=== PATIENT | male | born 1950 | race Caucasian/White ===

== ENCOUNTER 2025-02-03 13:09 | Inpatient (IN) ==
--- NOTE | 2025-02-03 13:29 | Emergency Department Note ---
Impression & Plan Stroke-like symptoms ED Provider Note NAME: GUERLINE YATES AGE: 75 SEX: M : 1950 ARRIVES VIA: Ambulance INFORMANT: Patient, EMS ED PROVIDER(S): Rajan Neri DO CHIEF COMPLAINT: Seizure HPI: The patient is a 75-year-old male who presented to the emergency department for an evaluation of possible seizure. The patient was a prehospital notification. The patient reportedly had a seizure this morning at around 11:45 AM. When the business analytics specialist arrived the patient was still somewhat postictal. There was no reported nausea or vomiting. The patient does complain of a slight headache. The patient then had an episode of aphasia prior to arrival. This was very short-lived lasting only few seconds. The patient at this time has no complaints. He denies having any fever. He denies having any neck pain or neck stiffness. He denies having any noncompliance of medications. The patient does not have a history of seizure. ROS: See above HPI for pertinent positives & negatives. A total of 10 systems reviewed and were otherwise negative. PAST MEDICAL HISTORY: See Below PAST SURGICAL HISTORY: See Below FAMILY HISTORY: See Below SOCIAL HISTORY: See Below HOME MEDICATIONS: See Below ALLERGIES: See Below VITALS: See Below PHYSICAL EXAMINATION: GENERAL: The patient is awake and answers questions appropriately. He is somewhat slow to answer questions but overall is following commands well. EYES: The conjunctivae are clear. The pupils are round and reactive. EARS, NOSE, MOUTH AND THROAT: The nose is without any evidence of any deformity. NECK: The neck is nontender and supple. RESPIRATORY: Normal respiratory effort is noted there is no evidence of wheezing rhonchi or rales CARDIOVASCULAR: Regular rate and rhythm noted there no murmurs rubs or gallops normal S1 normal S2. GASTROINTESTINAL: The abdomen is soft. Abdomen is nontender. MUSCULOSKELETAL/EXTREMITIES: There is no evidence of gross deformity full range of motion is noted in the hips and shoulders. SKIN: There is no obvious evidence of any rash. There are no petechiae, pallor or cyanosis noted. NEUROLOGIC: The patient is awake and oriented to person place and time. Strength was symmetric but diminished. There is no facial droop. Speech was soft but understandable. MEDICAL DECISION MAKING: This the patient is a 75-year-old male who presented to the emergency department by ambulance. I did receive a prehospital notification about the patient. They were concerned he may be exhibiting strokelike symptoms. He may have had a seizure prior to arrival. This was described as generalized seizure but he also has been having staring episodes. The patient arrives at the emergency department awake and alert. He was a little slow to answer questions but ultimately appears to be at his baseline according to his daughter. I discussed the patient's laboratory and radiographic studies with him. Given his findings I discussed his condition with the on-call [facility] hospitalist. He may require further inpatient evaluation. Triage Nursing notes reviewed. Prior medical records reviewed Vital Signs: reviewed and remarkable for elevated blood pressure. Differential diagnosis: Epilepsy, infection, hypoglycemia, electrolyte abnormalities, cardiac sources, intracerebral event, trauma, toxicologic, neurologic, syncope, as well as other pathologies. ER treatment provided: See below Diagnostics interpreted by me: ECG: EKG was obtained in the emergency department. My interpretation is normal sinus rhythm at 65 bpm. Nonspecific T wave abnormalities were noted. This was compared to a tracing from November 20, 2022. No changes were noted. Prehospital EKG was reviewed. My interpretation is sinus rhythm at 68 bpm. There is no ectopy. Similar T wave abnormalities were noted. Cardiac Monitoring: An order was placed for continuous cardiac monitoring. The monitor shows a rate of 63 bpm with sinus rhythm. Laboratory studies: As stated above and show below. Imaging studies: See below. Radiographic imaging was reviewed by myself Consultation(s): I discussed this case [facility] Mad[facility]. Past Med/Surg History Problem List (Updated 02/03/25 @ 17:16 by Rajan Neri DO) Stroke-like symptoms (Acute) Rectal bleeding Encounter for pre-operative examination Non-insulin dependent diabetes mellitus Hyperlipidemia Hypertension Medical History Hyperlipidemia HTN (hypertension) CAD (coronary artery disease) Stent x ~2009 BPH (benign prostatic hyperplasia) Osteoarthritis Ulcerative colitis dx prior to 2009 ? , sx intervention occ flare ups: none recent. Diabetes mellitus, type 2 NIDDM Carotid artery stenosis not that pt daughter aware of PTSD (post-traumatic stress disorder) Sleep apnea cpap, uses sometimes. Asthma last use rescue inhaler week of September [id number]. With Pollen flare. Poor historian Surgical History History of spinal fusion lumbar History of carpal tunnel release R History of colonoscopy History of herniorrhaphy R/L inguinal History of appendectomy History of bowel resection History of tooth extraction all teeth removed History of tonsillectomy History of cataract surgery left History of heart artery stent x1 , 2010 ? History of cardiac cath sob, c/p with stress test...2010 ? with 1 stent Family History Daughter Family history of reaction to anesthesia n/v Social History Smoking Status: Unknown if ever smoked Tobacco Type: Cigarettes Cigarettes Per Day: 15 year; Second Hand Exposure: No; Do You Dip or Chew Tobacco: No; Hx Alcohol Use: No Hx Substance Use: No Preferred Language: Lao Communication Ability: Effective Communication Ability Comment: phone interview with pt and pt daughter per his request. Wrapper And Preserver Required: No Beliefs That Will Affect Care: None and Taoism Taoism Beliefs: Oriental Orthodox Current Living Situation: Alone Feels Safe at Home: Yes Assistive Devices: Cane, CPAP and Walker Allergies Allergies Allergy/AdvReac Type Severity Reaction Status Date / Time bee venom protein (honey bee) Allergy Severe Swelling Verified 12/09/23 06:27 of Lip/Tongue/Throat procaine Allergy Severe ALLERGY TO Verified 12/09/23 06:27 LOCAL ANETHETICS, RXN UNKNOWN spironolactone Allergy Unknown Unknown Verified 12/09/23 06:27 [From Aldactone] lisinopril AdvReac Unknown Gastrointestinal Verified 12/09/23 06:27 Upset Home Meds Home Medications Medication Instructions Recorded Confirmed albuterol sulfate 90 mcg/actuation 2 puffs inhalation Q6H PRN 01/21/19 02/03/25 breath activated powder inhaler Shortness Of Breath atorvastatin 80 mg tablet 40 mg PO HS 01/21/19 02/03/25 cetirizine 10 mg capsule 10 mg PO QAM 01/21/19 02/03/25 cyanocobalamin (vitamin B-12) 500 500 mcg PO QAM 01/21/19 02/03/25 mcg tablet epinephrine 0.3 mg/0.3 mL 0.3 mg IM UD PRN bee stings 01/21/19 02/03/25 injection, auto-injector losartan 100 mg tablet 100 mg PO QAM 01/21/19 02/03/25 metformin 500 mg tablet 500 mg PO BID 01/21/19 02/03/25 aspirin 81 mg tablet,delayed 81 mg PO DAILY 02/03/25 02/03/25 release cholecalciferol (vitamin D3) 25 25 mcg PO DAILY 02/03/25 02/03/25 mcg (1,000 unit) tablet (Vitamin D3) metoprolol succinate 25 mg 25 mg PO HS 02/03/25 02/03/25 tablet,extended release 24 hr pregabalin 50 mg capsule 50 mg PO BID 02/03/25 02/03/25 sennosides 8.6 mg-docusate sodium 1 tab PO DAILY 02/03/25 02/03/25 50 mg tablet thiamine HCl (vitamin B1) 100 mg 100 mg PO DAILY 02/03/25 02/03/25 tablet tiotropium bromide 2.5 2 puff inhalation DAILY 02/03/25 02/03/25 mcg/actuation mist for inhalation Previous Rx's Medication Instructions Recorded meclizine 25 mg tablet 25 mg PO TID PRN dizziness #30 tabs 11/20/22 Results & Data (ED) Vital Signs Vital Signs - 24 hr 02/03/25 13:27 02/03/25 13:27 02/03/25 13:45 Temperature 36.1 C L 36.1 C L Temperature Source Axillary Axillary Pulse Rate 62 Pulse Rate [Apical] 62 Respiratory Rate 20 20 Blood Pressure 117/51 L Blood Pressure [Right Arm] 117/51 L Blood Pressure Mean 73 Blood Pressure Mean [Right Arm] 73 Pulse Oximetry 96 96 97 Oxygen Delivery Method Room Air Room Air Room Air Sepsis Recent Fever Within 48 Hours No Sepsis New/Unexplained Change in Mental Status Yes Sepsis Action Taken by Nursing No Action Required 02/03/25 14:26 02/03/25 15:52 Temperature Temperature Source Pulse Rate 62 Pulse Rate [Apical] 63 Respiratory Rate 18 Blood Pressure Blood Pressure [Right Arm] 150/118 H Blood Pressure Mean Blood Pressure Mean [Right Arm] 128 Pulse Oximetry 98 Oxygen Delivery Method Sepsis Recent Fever Within 48 Hours Sepsis New/Unexplained Change in Mental Status Sepsis Action Taken by Group Home Medications Current Medication List: was personally reviewed by me Laboratory Data Attestation: I reviewed the patient's lab results. 02/03/25 13:18 02/03/25 13:18 Lab Results 02/03/25 02/03/25 02/03/25 Range/Units 13:18 13:32 13:41 WBC 5.25 (4.8-10.8) K/ul RBC 5.05 (4.70-6.10) M/uL Hgb 14.7 (14.0-18.0) g/dl POC Hgb 14.3 (14.0-18.0) g/dl Hct 42.5 (42.0-52.0) % POC Hct 42 (42-52) % MCV 84.2 (80.0-100.0) fL MCH 29.1 (25.0-34.0) pg MCHC 34.6 (32.0-36.0) g/dL RDW Std Deviation 37.1 (36.4-46.3) fL RDW Coeff of Gelacio 12.4 (11.5-14.5) % Plt Count 192 (130-400) K/uL MPV 10.1 (9.4-12.4) fL Immature Gran % (Auto) 0.4 % Neut % (Auto) 64.9 % Lymph % (Auto) 20.8 % Solano % (Auto) 13.3 % Eos % (Auto) 0.2 % Baso % (Auto) 0.4 % Neut # (Auto) 3.41 (1.40-6.50) K/uL Lymph # (Auto) 1.09 L (1.20-3.40) K/uL Solano # (Auto) 0.70 H (0.11-0.59) K/uL Eos # (Auto) 0.01 (0.00-0.50) K/uL Baso # (Auto) 0.02 (0.00-0.20) K/uL Immature Gran # (Auto) 0.02 (0.01-0.20) K/uL PT 11.1 (9.0-12.0) Seconds INR 1.1 (0.9-1.1) APTT 20 L (21-31) Seconds PTT Ratio 0.7 VBG pH 7.32 L (7.36-7.41) VBG pCO2 52 H (38-50) mmHg VBG pO2 20 mmHg VBG HCO3 27 mmol/L VBG O2 Saturation < 60.0 % VBG Base Excess -0.1 mEq/L POC Sodium 140 (135-144) mmol/L Sodium 139 (136-145) mmol/L POC Potassium 3.5 (3.3-5.0) mmol/L Potassium 3.6 (3.5-5.1) mmol/L POC Chloride 102 (101-112) mmol/L Chloride 103 (98-107) mmol/L Carbon Dioxide 28 (21-32) mmol/L POC Total CO2 26 (24-31) mmol/L Anion Gap 8 (3-11) POC Anion Gap 17.0 (16-25) mmol/L POC BUN 30 H (7-18) mg/dl BUN 29 H (6-23) mg/dl Creatinine 1.75 H (0.6-1.4) mg/dl POC Creatinine 2.1 H (0.6-1.3) mg/dl Est Cr Clr Drug Dosing 46.8 ml/min eGFR 39.85 BUN/Creatinine Ratio 16.6 (10-20) Glucose 137 H (70-99(Fasting)) mg/dl POC Glucose 117 H (70-99) mg/dl POC Glucose (other) 134 H (70-99) mg/dl Lactate 1.9 (0.4-2.0) mmol/L Calcium 8.8 (8.6-10.3) mg/dl POC Ioniz Calcium Richie 1.07 L (1.12-1.32) mmol/l Magnesium 1.9 (1.7-2.4) mg/dl Total Bilirubin 1.2 H (0.2-1.0) mg/dl AST 27 (13-39) U/L ALT 19 (7-52) U/L Alkaline Phosphatase 74 (34-104) U/L Ammonia 23.0 (18-72) umol/L Troponin I High Sens 17.8 (0-20) pg/ml Total Protein 6.9 (6.0-8.3) gm/dl Albumin 3.9 (3.4-5.0) gm/dl Globulin 3.0 (2.5-4.0) gm/dl Albumin/Globulin Ratio 1.3 (0.9-2) Ethyl Alcohol mg/dL (<10.0) mg/dl 02/03/25 Range/Units 14:26 WBC (4.8-10.8) K/ul RBC (4.70-6.10) M/uL Hgb (14.0-18.0) g/dl POC Hgb (14.0-18.0) g/dl Hct (42.0-52.0) % POC Hct (42-52) % MCV (80.0-100.0) fL MCH (25.0-34.0) pg MCHC (32.0-36.0) g/dL RDW Std Deviation (36.4-46.3) fL RDW Coeff of Gelacio (11.5-14.5) % Plt Count (130-400) K/uL MPV (9.4-12.4) fL Immature Gran % (Auto) % Neut % (Auto) % Lymph % (Auto) % Solano % (Auto) % Eos % (Auto) % Baso % (Auto) % Neut # (Auto) (1.40-6.50) K/uL Lymph # (Auto) (1.20-3.40) K/uL Solano # (Auto) (0.11-0.59) K/uL Eos # (Auto) (0.00-0.50) K/uL Baso # (Auto) (0.00-0.20) K/uL Immature Gran # (Auto) (0.01-0.20) K/uL PT (9.0-12.0) Seconds INR (0.9-1.1) APTT (21-31) Seconds PTT Ratio VBG pH (7.36-7.41) VBG pCO2 (38-50) mmHg VBG pO2 mmHg VBG HCO3 mmol/L VBG O2 Saturation % VBG Base Excess mEq/L POC Sodium (135-144) mmol/L Sodium (136-145) mmol/L POC Potassium (3.3-5.0) mmol/L Potassium (3.5-5.1) mmol/L POC Chloride (101-112) mmol/L Chloride (98-107) mmol/L Carbon Dioxide (21-32) mmol/L POC Total CO2 (24-31) mmol/L Anion Gap (3-11) POC Anion Gap (16-25) mmol/L POC BUN (7-18) mg/dl BUN (6-23) mg/dl Creatinine (0.6-1.4) mg/dl POC Creatinine (0.6-1.3) mg/dl Est Cr Clr Drug Dosing ml/min eGFR BUN/Creatinine Ratio (10-20) Glucose (70-99(Fasting)) mg/dl POC Glucose (70-99) mg/dl POC Glucose (other) (70-99) mg/dl Lactate (0.4-2.0) mmol/L Calcium (8.6-10.3) mg/dl POC Ioniz Calcium Richie (1.12-1.32) mmol/l Magnesium (1.7-2.4) mg/dl Total Bilirubin (0.2-1.0) mg/dl AST (13-39) U/L ALT (7-52) U/L Alkaline Phosphatase (34-104) U/L Ammonia (18-72) umol/L Troponin I High Sens (0-20) pg/ml Total Protein (6.0-8.3) gm/dl Albumin (3.4-5.0) gm/dl Globulin (2.5-4.0) gm/dl Albumin/Globulin Ratio (0.9-2) Ethyl Alcohol mg/dL < 10.0 (<10.0) mg/dl Administered Medications Discontinued Medications Sodium Chloride (Nss) 1,000 mls @ 999 mls/hr IV .Q1H1M ONE Stop: 02/03/25 14:49 Last Admin: 02/03/25 14:43 Dose: 999 mls/hr Documented By: CC Ioversol (Optiray 320 125ml) 119 ml IV ONCE ONE Stop: 02/03/25 14:05 Last Admin: 02/03/25 14:05 Dose: 119 ml Documented By: PLW Imaging Data Attestation: I personally reviewed and interpreted this imaging study as follows: My Impression: 1 view chest x-ray was obtained in the emergency department. My interpretation is no free air or definite filtrate, final report below. Radiologist's Impression: Chest X-Ray 02/03/25 13:23 XR chest 1V portable CLINICAL HISTORY: neuro deficit, acute stroke suspected COMPARISON STUDY: 11/20/2022 FINDINGS: Heart size and pulmonary vasculature are normal. No consolidation or pleural effusion. No pneumothorax. IMPRESSION: No acute findings. ACT 112: Negative or not required by law. Electronically signed by: Dallas Regalado M.D. 02/03/2025 1:[address] 02/03/25 13:23 CT SCAN OF THE BRAIN WITHOUT IV CONTRAST CLINICAL HISTORY: Seizure activity. COMPARISON STUDY: Head CT November 27, 2024. TECHNIQUE: Unenhanced axial CT scan of the brain was performed from the vertex to the skull base. A dose lowering technique was utilized adhering to the principles of ALARA. FINDINGS: No acute intracranial hemorrhage, midline shift or mass effect is present. Ventricular system is stable. Basal cisterns are patent. There are no extra axial collections. White matter hypodensities are unchanged and suggest small vessel disease. There are no findings to suggest acute dural sinus thrombosis or acute territorial infarct. IMPRESSION: No acute intracranial findings. No change in appearance of the brain. ACT 112: Negative or not required by law. Electronically signed by: Butch Silvestre M.D. 02/03/2025 2:47 PM Head CTA 02/03/25 13:23 CT ANGIOGRAM OF THE BRAIN CLINICAL HISTORY: Neurological deficit. Stroke like symptoms. COMPARISON STUDY: Unenhanced CT of the brain performed concurrently on 02/03/2025. TECHNIQUE: Following the IV administration of 119 cc of Optiray 320, CT angiogram of the brain was performed from the skull base to the vertex. Images are reviewed in the axial, sagittal, and coronal planes. 3-D MIPS images are created and assessed. IV contrast was administered without complication. A dose lowering technique was utilized adhering to the principles of ALARA. CT DOSE: 1206.78 mGy.cm FINDINGS: Brain parenchyma: There is age-related involutional change noting moderate subcortical and periventricular microangiopathic disease. There is no evidence of hemorrhage or mass effect noting angiographic phase technique. There is no evidence of enhancing mass lesion on the angiogram phase images. Mineralization is noted in the basal ganglia. No extra-axial fluid collection is seen. Zambrano- white matter differentiation is preserved. Ventricles, sulci, and cisterns: Prominent secondary to involutional change. CT angiogram of the brain: There is atherosclerotic calcification of the cavernous carotid arteries. The internal carotid arteries at the skull base are patent, as are the anterior and middle cerebral arteries. The vertebrobasilar system and posterior cerebral arteries are patent. The left vertebral artery is dominant. There is a right posterior communicating artery. There is no aneurysm, high-grade stenosis, or focal vessel cutoff identified throughout the intracranial circulation. Dural sinuses: Clear as visualized. Orbits: The bony orbits are intact. The orbital contents are normal as visualized noting bilateral ocular lens implants. Sinuses and mastoids: There is trace mucosal thickening in the right maxillary antrum and right frontal sinus. The remaining paranasal sinuses are clear. The mastoid air cells are well pneumatized. Soft tissues: A surgical clip persistent metallic foreign body is seen adjacent to the right parotid gland. Calvarium: Unremarkable. IMPRESSION: 1. There is no evidence of hemorrhage or mass effect noting angiographic phase technique. 2. Unremarkable CT angiogram of the brain. ACT 112: Negative or not required by law. Electronically signed by: Raghu Valle M.D. 02/03/2025 2:27 PM Neck CTA 02/03/25 13:23 CT angio neck with con CLINICAL HISTORY: neuro deficit, acute stroke suspected. TECHNIQUE: Following the IV administration of 120 of Optiray, CT angiogram of the neck was performed from the aortic arch to the skull base. Images are reviewed in the axial, sagittal, and coronal planes. 3-D MIPS images are created and assessed. IV contrast was administered without complication. All measurements were calculated based on NASCET criteria. A dose lowering technique was utilized adhering to the principles of ALARA. CT DOSE: 1206 COMPARISON STUDY: None FINDINGS: There are mild to moderate calcifications at the carotid bulbs and distally at the internal carotid arteries bilaterally. No significant narrowing or occlusion seen at the common or internal carotid arteries bilaterally. Left vertebral artery is dominant and the right vertebral artery is diminutive. No significant narrowing or occlusion seen in the vertebral arteries bilaterally. IMPRESSION: No significant arterial narrowing or occlusion seen in the neck. ACT 112: Negative or not required by law. The above report was generated using voice recognition software. It may contain grammatical, syntax or spelling errors. Electronically signed by: Dallas Regalado M.D. 02/03/2025 2:33 PM Discharge Plan Visit Data Chief Complaint: Seizure Stated Complaint: SEIZURE ED Provider: Rajan Neri Discharge Problem: Stroke-like symptoms Patient Disposition: Home - Self-Care Condition: Fair Forms Stand Alone Forms: [facility], Important Visit Information Prescriptions Prescriptions: No Action albuterol sulfate 90 mcg/actuation aerosol powdr breath activated 2 puffs INH Q6H PRN (Reason: Shortness Of Breath) atorvastatin 80 mg tablet 40 mg PO HS cetirizine 10 mg capsule 10 mg PO QAM cyanocobalamin (vitamin B-12) 500 mcg tablet 500 mcg PO QAM epinephrine 0.3 mg/0.3 mL auto-injector 0.3 mg IM UD PRN (Reason: bee stings) losartan 100 mg tablet 100 mg PO QAM metformin 500 mg tablet 500 mg PO BID meclizine 25 mg tablet 25 mg PO TID PRN (Reason: dizziness) Qty: 30 0RF sennosides-docusate sodium 8.6-50 mg Tablet 1 tab PO DAILY thiamine HCl (vitamin B1) 100 mg Tablet 100 mg PO DAILY aspirin 81 mg Tablet,Delayed Release (Dr/Ec) 81 mg PO DAILY metoprolol succinate 25 mg Tablet Extended Release 24 Hr 25 mg PO HS pregabalin 50 mg Capsule 50 mg PO BID cholecalciferol (vitamin D3) [Vitamin D3] 25 mcg (1,000 unit) Tablet 25 mcg PO DAILY tiotropium bromide 2.5 mcg/actuation Mist 2 puff INHALATION DAILY Referrals Referrals: Tamy Carrera, LYSSA [Primary Care Provider] -
--- NOTE | 2025-02-03 13:38 | XRay Report ---
XR chest 1V portable CLINICAL HISTORY: neuro deficit, acute stroke suspected COMPARISON STUDY: 11/20/2022 FINDINGS: Heart size and pulmonary vasculature are normal. No consolidation or pleural effusion. No p neumothorax. IMPRESSION: No acute findings. ACT 112: Negative or not required by law. Electronically signed by: Dallas Regalado M.D. 02/03/2025 1:37 PM
[2025-02-03 13:39] LABS: Base Excess VBG -0.1 mEq/L; HCO3 VBG 27 mmol/L; Oxygen Saturation VBG < 60.0 %; PCO2 VBG 52 mmHg (38-50); PO2 VBG 20 mmHg; pH VBG 7.32 (7.36-7.41)
[2025-02-03 14:03] LABS: Hematocrit (blood only) 42.5 % (42.0-52.0); Hemoglobin 14.7 g/dl (14.0-18.0); Immature Granulocytes # (auto) 0.02 K/uL (0.01-0.20); Immature Granulocytes % (auto) 0.4 %; Mean Corpuscular Hemoglobin 29.1 pg (25.0-34.0); Mean Corpuscular Volume 84.2 fL (80.0-100.0); Platelet Count 192 K/uL (130-400); RDW Standard Deviation 37.1 fL (36.4-46.3); Red Blood Count 5.05 M/uL (4.70-6.10); White Blood Count 5.25 K/ul (4.8-10.8)
[2025-02-03] MEDS: OPTIRAY 320 125ml IV ONE (14:05)
--- NOTE | 2025-02-03 14:29 | CT Scan Report ---
CT ANGIOGRAM OF THE BRAIN CLINICAL HISTORY: Neurological deficit. Stroke like symptoms. COMPARISON STUDY: Unenhanced CT of the brain performed concurrently on 02/03/2025. TECHNIQUE: Following the IV administration of 119 cc of Optiray 320, CT angiogram of the brain was pe rformed from the skull base to the vertex. Images are reviewed in the axial, sagittal, and coronal pl anes. 3-D MIPS images are created and assessed. IV contrast was administered without complication. A dose lowering technique was utilized adhering to the principles of ALARA. CT DOSE: 1206.78 mGy.cm FINDINGS: Brain parenchyma: There is age-related involutional change noting moderate subcortical and periventri cular microangiopathic disease. There is no evidence of hemorrhage or mass effect noting angiographic phase technique. There is no evidence of enhancing mass lesion on the angiogram phase images. Minera lization is noted in the basal ganglia. No extra-axial fluid collection is seen. Zambrano-white matter di fferentiation is preserved. Ventricles, sulci, and cisterns: Prominent secondary to involutional change. CT angiogram of the brain: There is atherosclerotic calcification of the cavernous carotid arteries. The internal carotid arteries at the skull base are patent, as are the anterior and middle cerebral a rteries. The vertebrobasilar system and posterior cerebral arteries are patent. The left vertebral ar alfredo is dominant. There is a right posterior communicating artery. There is no aneurysm, high-grade s tenosis, or focal vessel cutoff identified throughout the intracranial circulation. Dural sinuses: Clear as visualized. Orbits: The bony orbits are intact. The orbital contents are normal as visualized noting bilateral oc ular lens implants. Sinuses and mastoids: There is trace mucosal thickening in the right maxillary antrum and right front al sinus. The remaining paranasal sinuses are clear. The mastoid air cells are well pneumatized. Soft tissues: A surgical clip persistent metallic foreign body is seen adjacent to the right parotid gland. Calvarium: Unremarkable. IMPRESSION: 1. There is no evidence of hemorrhage or mass effect noting angiographic phase technique. 2. Unremarkable CT angiogram of the brain. ACT 112: Negative or not required by law. Electronically signed by: Raghu Valle M.D. 02/03/2025 2:27 PM
[2025-02-03 14:31] LABS: Alanine Aminotransferase 19.0 U/L (7-52); Albumin Globulin Ratio 1.3 (0.9-2); Albumin Level 3.9 gm/dl (3.4-5.0); Alkaline Phosphatase 74.0 U/L (34-104); Anion Gap 8.0 (3-11); Bilirubin,Total 1.2 mg/dl (0.2-1.0); Blood Urea Nitrogen 29.0 mg/dl (6-23); Calcium 8.8 mg/dl (8.6-10.3); Carbon Dioxide 28.0 mmol/L (21-32); Chloride 103.0 mmol/L (98-107); Creatinine Clr Calc Pharmacy 46.8 ml/min; Globulin 3.0 gm/dl (2.5-4.0); Glucose 137.0 mg/dl (70-99(Fasting)); Magnesium 1.9 mg/dl (1.7-2.4); Potassium 3.6 mmol/L (3.5-5.1); Sodium 139.0 mmol/L (136-145); Total Protein 6.9 gm/dl (6.0-8.3)
--- NOTE | 2025-02-03 14:36 | CT Scan Report ---
CT angio neck with con CLINICAL HISTORY: neuro deficit, acute stroke suspected. TECHNIQUE: Following the IV administration of 120 of Optiray, CT angiogram of the neck was performed from the aortic arch to the skull base. Images are reviewed in the axial, sagittal, and coronal plane s. 3-D MIPS images are created and assessed. IV contrast was administered without complication. All m easurements were calculated based on NASCET criteria. A dose lowering technique was utilized adherin g to the principles of ALARA. CT DOSE: 1206 COMPARISON STUDY: None FINDINGS: There are mild to moderate calcifications at the carotid bulbs and distally at the internal carotid arteries bilaterally. No significant narrowing or occlusion seen at the common or internal c arotid arteries bilaterally. Left vertebral artery is dominant and the right vertebral artery is dimi nutive. No significant narrowing or occlusion seen in the vertebral arteries bilaterally. IMPRESSION: No significant arterial narrowing or occlusion seen in the neck. ACT 112: Negative or not required by law. The above report was generated using voice recognition software. It may contain grammatical, syntax o r spelling errors. Electronically signed by: Dallas Regalado M.D. 02/03/2025 2:33 PM
[2025-02-03 14:37] LABS: INR 1.1 (0.9-1.1); Partial Thromboplastin Time 20 Seconds (21-31); Prothrombin Time 11.1 Seconds (9.0-12.0)
[2025-02-03] MEDS: SODIUM CHLORIDE 0.9% 1,000 ML IV ONE (14:43)
--- NOTE | 2025-02-03 14:48 | CT Scan Report ---
CT SCAN OF THE BRAIN WITHOUT IV CONTRAST CLINICAL HISTORY: Seizure activity. COMPARISON STUDY: Head CT November 27, 2024. TECHNIQUE: Unenhanced axial CT scan of the brain was performed from the vertex to the skull base. A dose lowering technique was utilized adhering to the principles of ALARA. FINDINGS: No acute intracranial hemorrhage, midline shift or mass effect is present. Ventricular syst em is stable. Basal cisterns are patent. There are no extra axial collections. White matter hypodensi ties are unchanged and suggest small vessel disease. There are no findings to suggest acute dural sin us thrombosis or acute territorial infarct. IMPRESSION: No acute intracranial findings. No change in appearance of the brain. ACT 112: Negative or not required by law. Electronically signed by: Butch Silvestre M.D. 02/03/2025 2:47 PM
--- NOTE | 2025-02-03 15:40 | History & Physical Report ---
<Statement entered by Lionel Kang, - 02/03/25 18:13> I have seen and examined the patient and have discussed the case with the advance practice provider. I have reviewed the advanced practitioner's documentation, and I agree with, and take responsibility for that plan of care. Patient evaluated while still in the ED, daughter at bedside. She states that she has noticed a significant difference in the patient's cognition/alertness/mentation since starting the Lyrica. He did have significant head trauma a few weeks ago as well. Reviewing patient's history suspect could have side effects from the Lyrica. Recommend discontinuing this. Also could potentially be having absence/partial complex seizures with a recent head trauma. Will await neurology opinion, hold antiseizure medications at this time. Patient states he does not wear his CPAP at home, seems just pulled off and throw it off every night. Very restless with his sleep at his baseline Agree with plan of care as outlined below I spent a total of 20 minutes coordinating, documenting, and providing care for this patient excluding time spent by another provider/QHP. Date of Service February 03, 2025 Assessment & Plan (1) Staring episodes: Plan: Patient is 75 year old male with PMH HTN, HLD, DM II, CKD III, neuropathy, asthma, CRISELDA intolerant to CPAP, vitamin B12 deficiency, BPH, and others listed below presented to ER for possible seizure today. H/O recurrent falls. Reported head injury 11/2024 and since with episodes of "staring and zoning out" and recurrent daily RAMIREZ's. Today episode in front of healthcare provider. No bowel/bladder incontinence. Today in ER no significant electrolyte abnormality CT Head: No acute intracranial findings. CTA Head: There is no evidence of hemorrhage or mass effect noting angiographic phase technique. Unremarkable CT angiogram of the brain. CTA Neck:No significant arterial narrowing or occlusion seen in the neck. ?Seizure, possible syncopal episodes, possible med side effect Seizure precautions MRI brain EEG Neurology consult Will hold pregabalin for now CBC, BMP in am (2) Recurrent falls: Plan: History recurrent falls past several months Fall precautions PT/OT eval #Neuropathy Previously trialed on gabapentin, amitriptyline which have since discontinued. Currently on pregabalin which will hold for now given symptoms (3) URI (upper respiratory infection): Plan: H/O asthma Nasal congestion, cough, myalgias x 1 week CXR: no acute infiltrate No leukocytosis, afebrile No wheezing on exam. Obtain nasal respiratory panel Albuterol as needed Continue home tiotropium bromide Mucinex (4) CKD (chronic kidney disease), stage III: Plan: ONOFRE on CKD III Cr: 1.75. Cr was 1.3 on 10/26/24 In ER given 1L NSS Monitor renal functions, avoid nephrotoxic agents when possible If worsening consider nephrology consult (5) Diabetes mellitus, type 2: Plan: Unknown A1c Hold home metformin Novolog sliding scale correction and monitor A1c in am (6) HTN (hypertension): (7) CAD (coronary artery disease): (8) Hyperlipidemia: Plan: Continue losartan, metoprolol succinate Continue atorvastatin (9) Sleep apnea: Plan: Reported intolerant to CPAP (10) BPH (benign prostatic hyperplasia): Plan: Following with urology outpatient Daughter reports off BPH meds UA pending DVT Prophylaxis SQ heparin Admit med surg Full Code as per discussion with pt, pt's daughter Follows with [place] [facility] for routine care Pt was seen and care coordinated with Dr Kang. See addendum I spent a total of 77 minutes reviewing notes, outpatient records, labs, medication, coordinating, documenting and providing care for this patient excluding time spent in the performance of separately billed services and excluding time spent by another provider/QHP. History of Present Illness Chief Complaint: possible seizure Primary Care Provider: Tamy Carrera PA-C Patient is 75 year old male with PMH HTN, HLD, DM II, CKD III, neuropathy, asthma, CRISELDA intolerant to CPAP, vitamin B12 deficiency, BPH, and others listed below presented to ER for possible seizure today. Patient reports recurrent falls and multiple times hit head in past several months. He states has been having balance issues and is falling. He states most of time he can catch himself using furniture in home but does fall to ground from standing position at least once a week. He also reports sometimes he finds himself on floor as if he has fallen but is unsure what happened. Per chart review was seen at [facility] ER on 11/27/2024 after a fall that occurred 2 weeks prior in which he reported striking his head and having daily headaches since. At that time CT head was without any acute intracranial abnormality and CT C-spine was without noted fracture. Patient states since that time seems to be having daily RAMIREZ's. Reports history head injury in and had recurrent RAMIREZ's after that but hasn't had RAMIREZ's for over 30 years until recently. He states progressive BLE weakness and paresthesias that daughter states has been worsened for months. Daughter states following with neurology at [place] and has MRI's ordered but not completed yet. Also reports started following with pain management And is awaiting MRI C-spine and consideration if injection would be beneficial. Patient reports bilateral shoulder discomfort after falls for past couple of months. He states has walker at home and wheelchair. Daughter states patient started pregabalin approximately 3 weeks ago and gabapentin and amitriptyline have been discontinued. Reports seems like since starting pregabalin she has noted patient with multiple episodes of what she describes as "staring off and zoning and out". She reports this occurs when they are having conversation and he appears to be looking off and stops talking and takes multiple prompts to restart conversation. She has not noted any tonic-clonic or shaking like motion. Patient reports some blurry vision but is unable to describe when this started. Daughter states home nurse was into visit patient today states patient was sitting in wheelchair when they were having conversation when he had episode of "staring off and was not responding". She reports he laid back in wheelchair. Daughter states she went off to call 911. She is unsure if there was any other reported seizure-like activity. Patient denies urinary or bowel incontinence, tongue biting. It is reported during EMS transport he had episode of staring and not talking. Patient states today he remembers home nurse coming and remembers talking to her. He reports next thing he remembers is being in an ambulance and having a headache and feeling nauseated. He is unsure if vomited today but denies vomiting during other episodes. Patient reports 1 week ago started with sore throat, nasal congestion, cough. Patient reports feels like cough is productive but does not bring anything up. Also reports for the past week with increased fatigue, generalized myalgias. Daughter states other family members with URI symptoms. Patient has taking OTC Tylenol sinus with limited relief. He states sometimes with SOB. Uses albuterol and spiriva intermittently as needed. Reports ongoing dysuria for months and has been following with urology. Patient also reports decreased appetite and decreased oral intake past couple of weeks. Reports last ETOH intake in 1981. Denies recreational drug use. Denies fever/chills, diaphoresis, dizziness, diplopia, neck pain, CP, orthopnea, palpitations, hemoptysis, choking, otalgia, abdominal pain, extremity edema, rashes, hematuria. Allergies Allergy/AdvReac Type Severity Reaction Status Date / Time bee venom protein (honey bee) Allergy Severe Swelling Verified 12/09/23 06:27 of Lip/Tongue/Throat procaine Allergy Severe ALLERGY TO Verified 12/09/23 06:27 LOCAL ANETHETICS, RXN UNKNOWN spironolactone Allergy Unknown Unknown Verified 12/09/23 06:27 [From Aldactone] lisinopril AdvReac Unknown Gastrointestinal Verified 12/09/23 06:27 Upset Home Medications Medication Instructions Recorded Confirmed Type albuterol sulfate 90 mcg/actuation 2 puffs inhalation Q6H PRN 01/21/19 02/03/25 History breath activated powder inhaler Shortness Of Breath atorvastatin 80 mg tablet 40 mg PO HS 01/21/19 02/03/25 History cetirizine 10 mg capsule 10 mg PO QAM 01/21/19 02/03/25 History cyanocobalamin (vitamin B-12) 500 500 mcg PO QAM 01/21/19 02/03/25 History mcg tablet epinephrine 0.3 mg/0.3 mL 0.3 mg IM UD PRN bee stings 01/21/19 02/03/25 History injection, auto-injector losartan 100 mg tablet 100 mg PO QAM 01/21/19 02/03/25 History metformin 500 mg tablet 500 mg PO BID 01/21/19 02/03/25 History meclizine 25 mg tablet 25 mg PO TID PRN dizziness #30 tabs 11/20/22 02/03/25 Rx aspirin 81 mg tablet,delayed 81 mg PO DAILY 02/03/25 02/03/25 History release cholecalciferol (vitamin D3) 25 25 mcg PO DAILY 02/03/25 02/03/25 History mcg (1,000 unit) tablet (Vitamin D3) metoprolol succinate 25 mg 25 mg PO HS 02/03/25 02/03/25 History tablet,extended release 24 hr pregabalin 50 mg capsule 50 mg PO BID 02/03/25 02/03/25 History sennosides 8.6 mg-docusate sodium 1 tab PO DAILY 02/03/25 02/03/25 History 50 mg tablet thiamine HCl (vitamin B1) 100 mg 100 mg PO DAILY 02/03/25 02/03/25 History tablet tiotropium bromide 2.5 2 puff inhalation DAILY 02/03/25 02/03/25 History mcg/actuation mist for inhalation Past Med/Surg History Problem List (Updated 02/03/25 @ 17:21 by Holly Goins PA-C) Neuropathy CKD (chronic kidney disease), stage III URI (upper respiratory infection) Recurrent falls Staring episodes Stroke-like symptoms (Acute) Rectal bleeding Encounter for pre-operative examination Non-insulin dependent diabetes mellitus Hyperlipidemia Hypertension Medical History Hyperlipidemia HTN (hypertension) CAD (coronary artery disease) Stent x 1 ~2009 BPH (benign prostatic hyperplasia) Osteoarthritis Ulcerative colitis dx prior to 2009 ? , sx intervention occ flare ups: none recent. Diabetes mellitus, type 2 NIDDM Carotid artery stenosis not that pt daughter aware of PTSD (post-traumatic stress disorder) Sleep apnea cpap, uses sometimes. Asthma last use rescue inhaler week of September 292023. With Pollen flare. Poor historian Surgical History History of spinal fusion lumbar History of carpal tunnel release R History of colonoscopy History of herniorrhaphy R/L inguinal History of appendectomy History of bowel resection History of tooth extraction all teeth removed History of tonsillectomy History of cataract surgery left History of heart artery stent x1 , 2010 ? History of cardiac cath sob, c/p with stress test...2010 ? with 1 stent Family History Daughter Family history of reaction to anesthesia n/v Social History (Updated 02/03/25 @ 17:25 by Holly Goins PA-C) Smoking Status: Former smoker Tobacco Type: Cigarettes Cigarettes Per Day: 15 year; Second Hand Exposure: No; Do You Dip or Chew Tobacco: No; Hx Alcohol Use: No Hx Substance Use: No Preferred Language: Qatari Communication Ability: Effective Communication Ability Comment: phone interview with pt and pt daughter per his request. Consultant Intern Required: No Beliefs That Will Affect Care: None and Congregational Congregational Beliefs: Church Current Living Situation: Alone Feels Safe at Home: Yes Assistive Devices: Cane, CPAP and Walker Review of Systems Review of Systems: All systems reviewed & are unremarkable except as noted in HPI & below Physical Exam Physical Exam: General: no distress, overweight elderly male, appears chronically ill Head: normocephalic, atraumatic Eyes: PERRL, EOM's intact, conjunctiva non-injected, anicteric ENT: +hard of hearing, normal inspection external ears, nose, mucous membranes dry, no pharynx erythema or edema, uvula midline Neck: supple, trachea midline, non-tender Lungs: clear, no respiratory distress, no wheezing/rhonchi/rales CV: RRR, no murmur, no pretibial edema Abd: normal BS, soft, non-tender Ext: no cyanosis, no calf tenderness Neuro: +hard of hearing so some things need repeated for pt to hear. Alert. oriented to person, place, month and year. No focal deficits noted, normal affect Skin: warm, dry Results & Data Results & Data Vital Signs (Past 12 Hours) Vital Signs Temp Pulse Pulse Resp BP BP Pulse Ox 02/03/25 14:26 62 02/03/25 13:45 97 02/03/25 13:27 36.1 C L 62 20 117/51 L 96 02/03/25 13:27 36.1 C L 62 20 117/51 L 96 O2 Del Method 02/03/25 14:26 02/03/25 13:45 Room Air 02/03/25 13:27 Room Air 02/03/25 13:27 Room Air Laboratory Results Short CBC 02/03/25 Range/Units 13:18 WBC 5.25 (4.8-10.8) K/ul Hgb 14.7 (14.0-18.0) g/dl Hct 42.5 (42.0-52.0) % Plt Count 192 (130-400) K/uL BMP 02/03/25 13:18 Sodium 139 Potassium 3.6 Chloride 103 Carbon Dioxide 28 BUN 29 H Creatinine 1.75 H Glucose 137 H Calcium 8.8 Liver Function 02/03/25 Range/Units 13:18 Total Bilirubin 1.2 H (0.2-1.0) mg/dl AST 27 (13-39) U/L ALT 19 (7-52) U/L Alkaline Phosphatase 74 (34-104) U/L Albumin 3.9 (3.4-5.0) gm/dl Diagnostic Findings Chest X-Ray 02/03/25 13:23 XR chest 1V portable CLINICAL HISTORY: neuro deficit, acute stroke suspected COMPARISON STUDY: 11/20/2022 FINDINGS: Heart size and pulmonary vasculature are normal. No consolidation or pleural effusion. No pneumothorax. IMPRESSION: No acute findings. ACT 112: Negative or not required by law. Electronically signed by: Dallas Regalado M.D. 02/03/2025 1:[address] 02/03/25 13:23 CT SCAN OF THE BRAIN WITHOUT IV CONTRAST CLINICAL HISTORY: Seizure activity. COMPARISON STUDY: Head CT November 27, 2024. TECHNIQUE: Unenhanced axial CT scan of the brain was performed from the vertex to the skull base. A dose lowering technique was utilized adhering to the principles of ALARA. FINDINGS: No acute intracranial hemorrhage, midline shift or mass effect is present. Ventricular system is stable. Basal cisterns are patent. There are no extra axial collections. White matter hypodensities are unchanged and suggest small vessel disease. There are no findings to suggest acute dural sinus thrombosis or acute territorial infarct. IMPRESSION: No acute intracranial findings. No change in appearance of the brain. ACT 112: Negative or not required by law. Electronically signed by: Butch Silvestre M.D. 02/03/2025 2:47 PM Head CTA 02/03/25 13:23 CT ANGIOGRAM OF THE BRAIN CLINICAL HISTORY: Neurological deficit. Stroke like symptoms. COMPARISON STUDY: Unenhanced CT of the brain performed concurrently on 02/03/2025. TECHNIQUE: Following the IV administration of 119 cc of Optiray 320, CT angiogram of the brain was performed from the skull base to the vertex. Images are reviewed in the axial, sagittal, and coronal planes. 3-D MIPS images are created and assessed. IV contrast was administered without complication. A dose lowering technique was utilized adhering to the principles of ALARA. CT DOSE: 1206.78 mGy.cm FINDINGS: Brain parenchyma: There is age-related involutional change noting moderate subcortical and periventricular microangiopathic disease. There is no evidence of hemorrhage or mass effect noting angiographic phase technique. There is no evidence of enhancing mass lesion on the angiogram phase images. Mineralization is noted in the basal ganglia. No extra-axial fluid collection is seen. Zambrano- white matter differentiation is preserved. Ventricles, sulci, and cisterns: Prominent secondary to involutional change. CT angiogram of the brain: There is atherosclerotic calcification of the cavernous carotid arteries. The internal carotid arteries at the skull base are patent, as are the anterior and middle cerebral arteries. The vertebrobasilar system and posterior cerebral arteries are patent. The left vertebral artery is dominant. There is a right posterior communicating artery. There is no aneurysm, high-grade stenosis, or focal vessel cutoff identified throughout the intracranial circulation. Dural sinuses: Clear as visualized. Orbits: The bony orbits are intact. The orbital contents are normal as visualized noting bilateral ocular lens implants. Sinuses and mastoids: There is trace mucosal thickening in the right maxillary antrum and right frontal sinus. The remaining paranasal sinuses are clear. The mastoid air cells are well pneumatized. Soft tissues: A surgical clip persistent metallic foreign body is seen adjacent to the right parotid gland. Calvarium: Unremarkable. IMPRESSION: 1. There is no evidence of hemorrhage or mass effect noting angiographic phase t echnique. 2. Unremarkable CT angiogram of the brain. ACT 112: Negative or not required by law. Electronically signed by: Raghu Valle M.D. 02/03/2025 2:27 PM Neck CTA 02/03/25 13:23 CT angio neck with con CLINICAL HISTORY: neuro deficit, acute stroke suspected. TECHNIQUE: Following the IV administration of 120 of Optiray, CT angiogram of the neck was performed from the aortic arch to the skull base. Images are reviewed in the axial, sagittal, and coronal planes. 3-D MIPS images are created and assessed. IV contrast was administered without complication. All measurements were calculated based on NASCET criteria. A dose lowering technique was utilized adhering to the principles of ALARA. CT DOSE: 1206 COMPARISON STUDY: None FINDINGS: There are mild to moderate calcifications at the carotid bulbs and distally at the internal carotid arteries bilaterally. No significant narrowing or occlusion seen at the common or internal carotid arteries bilaterally. Left vertebral artery is dominant and the right vertebral artery is diminutive. No significant narrowing or occlusion seen in the vertebral arteries bilaterally. IMPRESSION: No significant arterial narrowing or occlusion seen in the neck. ACT 112: Negative or not required by law. The above report was generated using voice recognition software. It may contain grammatical, syntax or spelling errors. Electronically signed by: Dallas Regalado M.D. 02/03/2025 2:33 PM ECG Additional Comments: Poor tracing. Sinus rhythm, rate 65, nonspecific T wave changes however seem to appear similar to 11/20/2022 EKG per my interpretation
[2025-02-03 17:18] LABS: Appearance Urine Clear (Clear); Glucose Urine UA Negative (Negative)
[2025-02-03 18:02] LABS: Amphetamines+Metham, Urine Neg (Neg); MDMA (Ecstacy), Urine Neg (Neg); Marijuana, Urine Neg (Neg)
[2025-02-03 18:03] LABS: Chlamydia pneumoniae PCR Not Detected (NotDetected); Coronavirus 229E PCR Not Detected (NotDetected); Coronavirus CoV-2 (COVID19)PCR DETECTED (NotDetected); Coronavirus HKU1 PCR Not Detected (NotDetected); Coronavirus NL63 PCR Not Detected (NotDetected); Coronavirus OC43PCR Not Detected (NotDetected); Human Metapneumovirus PCR Not Detected (NotDetected); Parainfluenza Virus 1 PCR Not Detected (NotDetected); Parainfluenza Virus 2 PCR Not Detected (NotDetected); Parainfluenza Virus 3 PCR Not Detected (NotDetected); Parainfluenza Virus 4 PCR Not Detected (NotDetected); Respiratory Syncytial VirusPCR Not Detected (NotDetected); Rhinovirus/Enterovirus PCR Not Detected (NotDetected)
[2025-02-03] MEDS ORDERED: GLUCAGON FOR INJ 1 MG VIAL SQ PRN (19:40)
[2025-02-03] MEDS ORDERED: DEXTROSE 50% 50 ML SYRINGE IV PRN (19:40)
[2025-02-03] MEDS ORDERED: ALBUTEROL 0.083% NEBU SOLN 3 ML VIAL NEB PRN (19:40)
[2025-02-03] MEDS ORDERED: MAGNESIUM HYDROXIDE SUSP 30 ML UDC PO PRN (19:40)
[2025-02-03] MEDS ORDERED: GLUCOSE 40% GEL 15 GM TUBE PO PRN (19:40)
[2025-02-03] MEDS ORDERED: CARBOHYDRATES FOR HYPOGLYCEMIA PO PRN (19:40)
[2025-02-03] MEDS ORDERED: LORazepam Inj 2 MG in SYRINGE 1 ML IV PRN (19:40)
[2025-02-03] MEDS ORDERED: GLUCOSE 10 TAB/TUBE PO PRN (19:40)
[2025-02-03] MEDS ORDERED: ONDANSETRON INJ 2 MG/ML 2 ML VIAL IV PRN (19:40)
[2025-02-03] MEDS: GADOBUTROL 65ML VIAL IV ONE (20:14)
--- NOTE | 2025-02-03 21:52 | Magnetic Resonance Report ---
Exam(s): MRI HEAD W/WO Contrast EXAM: MR Head Without and With Intravenous Contrast CLINICAL HISTORY: Reason for exam: recurrent HAs, possible seizure. TECHNIQUE: Magnetic resonance images of the head/brain without and with intravenous contrast in multiple planes. CONTRAST: Contrast must be dictated COMPARISON: Prior head CT from February 03, 2025. FINDINGS: This study is limited secondary to motion artifact. Brain: Advanced nonspecific white matter changes. No mass. No hemorrhage. No acute infarct. The flow voids at the base the brain are intact. No evidence of abnormal enhancement. No evidence of mesial temporal sclerosis, heterotopic triplett matter or cortical dysplasia. Ventricles: Moderate ventriculomegaly. Bones/joints: Unremarkable. No acute fracture. Sinuses: Unremarkable colonic maxillary and ethmoid sinusitis. No acute sinusitis. Mastoid air cells: Unremarkable as visualized. No mastoid effusion. Orbits: Bilateral lens replacements. IMPRESSION: No evidence of acute intracranial pathology. Electronically signed by: Prema Hector MD 02/03/25 21:51 PM
[2025-02-03] MEDS: INSULIN ASPART PER UNIT CHARGE SC SCH (22:30)
[2025-02-03] MEDS: METOPROLOL SUCC 25MG EXT REL TAB PO SCH (22:40)
[2025-02-03] MEDS: HEPARIN SOD 5,000 UNIT/0.5 ML VIAL SQ SCH (22:41)
[2025-02-03] MEDS: ATORVASTATIN 40 MG TAB PO SCH (22:41)
[2025-02-03] MEDS: guaiFENesin 600 MG TABCR PO SCH (22:41)
[2025-02-04 06:25] LABS: Hematocrit (blood only) 40.7 % (42.0-52.0); Hemoglobin 14.1 g/dl (14.0-18.0); Mean Corpuscular Hemoglobin 28.8 pg (25.0-34.0); Mean Corpuscular Volume 83.2 fL (80.0-100.0); Platelet Count 197 K/uL (130-400); RDW Standard Deviation 37.2 fL (36.4-46.3); Red Blood Count 4.89 M/uL (4.70-6.10); White Blood Count 4.49 K/ul (4.8-10.8)
[2025-02-04 06:48] LABS: Anion Gap 10.0 (3-11); Blood Urea Nitrogen 26.0 mg/dl (6-23); Calcium 8.5 mg/dl (8.6-10.3); Carbon Dioxide 26.0 mmol/L (21-32); Chloride 105.0 mmol/L (98-107); Creatinine Clr Calc Pharmacy 60.0 ml/min; Glucose 91.0 mg/dl (70-99(Fasting)); Potassium 3.4 mmol/L (3.5-5.1); Sodium 141.0 mmol/L (136-145)
[2025-02-04 07:04] LABS: Thyroid Stimulating Hormone 2.812 uIu/ml (0.300-4.500)
[2025-02-04 07:34] LABS: Hemoglobin A1C 6.4 % (4.5-5.6)
[2025-02-04] MEDS: ASPIRIN 81 MG ECTAB PO SCH (08:34)
[2025-02-04] MEDS: CETIRIZINE HCL 10 MG TABLET PO SCH (08:34)
[2025-02-04] MEDS: LOSARTAN POTASSIUM 50 MG TAB PO SCH (08:34)
[2025-02-04] MEDS: THIAMINE HCL 100 MG TAB PO SCH (08:35)
[2025-02-04] MEDS: CYANOCOBALAMIN (B-12) 500 MCG TABLET PO SCH (08:35)
[2025-02-04] MEDS: CHOLECALCIFEROL 25 MCG (1000 UNITS) TAB PO SCH (08:35)
[2025-02-04] MEDS: DOCUSATE SODIUM/SENNA 50/8.6MG TAB PO SCH (09:05)
[2025-02-04] MEDS: UMECLIDINIUM/VILANTEROL 62.5/25MCG 7 PUFFS/INHALER INH SCH (09:05)
[2025-02-04] MEDS: POTASSIUM CHLORIDE CRTAB 20 MEQ TABCR PO STA (09:05)
--- NOTE | 2025-02-04 11:47 | Hospitalist Progress Note ---
Date of Service February 04, 2025 Assessment & Plan (1) URI (upper respiratory infection): (2) Staring episodes: Plan 75 year old male with PMH of HTN, HLD, DM II, CKD III, neuropathy, asthma, CRISELDA intolerant to CPAP, vitamin B12 deficiency, BPH, and others listed below presented to ER for possible seizure 02/03. H/O recurrent falls. Reported head injury 11/2024 and since with episodes of "staring and zoning out" and recurrent daily RAMIREZ's. 02/03 w/ an episode in front of healthcare provider. No bowel/bladder incontinence. Staring episodes: At presentation, no significant electrolyte abnormality CT Head: No acute intracranial findings. CTA Head: There is no evidence of hemorrhage or mass effect noting angiographic phase technique. Unremarkable CT angiogram of the brain. CTA Neck:No significant arterial narrowing or occlusion seen in the neck. MRI brain w/ no acute finding. ?Seizure, possible syncopal episodes, possible med side effect Multiple staring episodes noted after starting pregabalin about 3 weeks ago per dtr Seizure precautions EEG pending Neurology consult, pending eval DC pregabalin CBC, BMP in am, repleted KCL Recurrent falls: History recurrent falls past several months. Fall precautions. PT/OT eval Neuropathy: Previously trialed on gabapentin, amitriptyline which have since discontinued. Currently on pregabalin which will hold for now given symptoms. f/u with neuro on dc. URI (upper respiratory infection): COVID 19 infection Ho asthma Nasal congestion, cough, myalgias x 1 week CXR: no acute infiltrate No leukocytosis, afebrile No wheezing on exam. COVID 19 +ve, pt has cough w/ scant clear sputum c/w albuterol prn, home tiotropium, mucinex. Acute Kidney Injury on CKD III Admitting Cr: 1.75. 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 s/p ivf, CR improved to 1.34 Monitor renal functions, avoid nephrotoxic agents when possible Other chronic medical conditions: Continue with/resume home meds as and when able. T2DM: Hold home metformin, sliding scale insulin while in hospital. A1c of 6.4 this admission. HTN/CAD/HLD: Continue with home losartan, metoprolol, atorvastatin. Sleep apnea: Intolerant to CPAP per patient. BPH: Follows urology as an outpatient, Dtr reports pt is off of BPH meds. DVT prophylaxis: SQ heparin Full code Follows with [facility] for routine care. Admission and Anticipated Discharge Date Admission Date: February 03, 2025 Subjective Patient was seen and examined at bedside. Patient was lying in bed, on room air, NAD, resting comfortably. Patient reports cough with scant sputum, clear. Reports feeling "weird" today. Patient denies shortness of breath/chest pain/sore throat/belly pain. Per RN, patient had staring episodes while in the hospital. Patient reports being able to eat okay and moving gas. Physical Exam Physical Exam: General: no distress, overweight elderly male, appears chronically ill, on RA Head: normocephalic, atraumatic Eyes: PERRL, EOM's intact, conjunctiva non-injected, anicteric ENT: +hard of hearing, normal inspection external ears, nose, mucous membranes moist, no pharynx erythema or edema, uvula midline Neck: supple, trachea midline, non-tender Lungs: clear, no respiratory distress, no wheezing/rhonchi/rales CV: RRR, no murmur, no pretibial edema Abd: normal BS, soft, non-tender Ext: no cyanosis, no calf tenderness Neuro: Alert. oriented to person, place, month and year. No focal deficits noted, normal affect Skin: warm, dry Results & Data Results & Data Vital Signs (Past 12 Hours) Vital Signs Temp Pulse Resp BP Pulse Ox O2 Del Method 02/04/25 09:12 Room Air 02/04/25 08:27 36.7 C 64 18 177/92 H 95 Room Air 02/04/25 03:16 36.7 C 78 18 172/81 H 95 Room Air
[2025-02-04] MEDS: LIDOCAINE 5% 1 PATCH TD SCH (16:06)
--- NOTE | 2025-02-04 17:10 | Neurology Consultation ---
Date of Consultation February 04, 2025 Assessment & Plan (1) Recurrent falls: I suspect that his symptoms are related to NPH. Plan The patient would benefit from evaluation in the NPH clinic after reviewing his MRI to the clinic. Alternatively a large-volume LP can be done with PT evaluating his gait pre and post LP Agree with discontinuing Cymbalta. Will follow EEG results. Optimize his medical management. Will need NPH clinic referral and neurosurgical referral Telehealth Consultation Telehealth Information Telehealth Information: I performed this visit using a real-time telehealth connection between my location and the patients originating location ([facility]). After connecting through interactive tele-video, patient was identified by name and date of and/or wristband check.Patient (or authorized healthcare parts representative) was informed that this was a telemedicine visit and it was being conducted confidentially over secure lines. My office door was closed and no one else was present in the room with me.Patient (or authorized healthcare parts representative) provided consent to proceed with the visit, expressed an und erstanding of privacy and security of the telemedicine visit, and gave permission to have a hospital parts representative in the room in order to assist with the visit and to conduct portions of the visit, as needed. I informed the patient (or authorized healthcare parts representative) that I reviewed their record and presented the opportunity for them to ask any questions regarding the visit today. The patient agreed to participate. History of Present Illness Reason for Consultation: Starring spells Requesting Physician: Choco Anderson MD Attending Physician: Choco Anderson MD History of Present Illness Robert Canales is a 75-year-old male patient with PMH of type II DM, HTN, CKD stage III, HLP, CRISELDA, B12 deficiency and BPH who presented to the emergency room for staring spells. The patient also has a history of recurrent falls unsure if this is related. The patient had a head injury on 12/14/2024 since then he has been having episodes of staring, this also coincides potentiating Cymbalta for headaches. The patient was found to have upper respiratory symptoms with COVID-19 infection without infiltrates of the chest x-ray, he has been he is being symptomatically treated with inhaled controller inhalers and mucolytic's, also noted to have some prerenal azotemia. Upon my evaluation the patient was laying in bed comfortably, he was awake alert and oriented, the nurse says that he is almost awake and oriented he has been today, in the morning he names a different president and did not know where he is. He walks with a walker and a cane at home, however his gait fluctuates, he has not been incontinent of urine today. Upon my evaluation his gait was magnetic and he does not lift his feet off the ground while walking with a walker. He did not have any drift in his upper or lower EXTR did not have any abnormal movement however could not participate much in history given Allergies Allergy/AdvReac Type Severity Reaction Status Date / Time bee venom protein (honey bee) Allergy Severe Swelling Verified 12/09/23 06:27 of Lip/Tongue/Throat procaine Allergy Severe ALLERGY TO Verified 12/09/23 06:27 LOCAL ANETHETICS, RXN UNKNOWN spironolactone Allergy Unknown Unknown Verified 12/09/23 06:27 [From Aldactone] lisinopril AdvReac Unknown Gastrointestinal Verified 12/09/23 06:27 Upset Home Medications Medication Instructions Recorded Confirmed Type albuterol sulfate 90 mcg/actuation 2 puffs inhalation Q6H PRN 01/21/19 02/03/25 History breath activated powder inhaler Shortness Of Breath atorvastatin 80 mg tablet 40 mg PO HS 01/21/19 02/03/25 History cetirizine 10 mg capsule 10 mg PO QAM 01/21/19 02/03/25 History cyanocobalamin (vitamin B-12) 500 500 mcg PO QAM 01/21/19 02/03/25 History mcg tablet epinephrine 0.3 mg/0.3 mL 0.3 mg IM UD PRN bee stings 01/21/19 02/03/25 History injection, auto-injector losartan 100 mg tablet 100 mg PO QAM 01/21/19 02/03/25 History metformin 500 mg tablet 500 mg PO BID 01/21/19 02/03/25 History meclizine 25 mg tablet 25 mg PO TID PRN dizziness #30 tabs 11/20/22 02/03/25 Rx aspirin 81 mg tablet,delayed 81 mg PO DAILY 02/03/25 02/03/25 History release cholecalciferol (vitamin D3) 25 25 mcg PO DAILY 02/03/25 02/03/25 History mcg (1,000 unit) tablet (Vitamin D3) metoprolol succinate 25 mg 25 mg PO HS 02/03/25 02/03/25 History tablet,extended release 24 hr pregabalin 50 mg capsule 50 mg PO BID 02/03/25 02/03/25 History sennosides 8.6 mg-docusate sodium 1 tab PO DAILY 02/03/25 02/03/25 History 50 mg tablet thiamine HCl (vitamin B1) 100 mg 100 mg PO DAILY 02/03/25 02/03/25 History tablet tiotropium bromide 2.5 2 puff inhalation DAILY 02/03/25 02/03/25 History mcg/actuation mist for inhalation Patient History Medical History Hyperlipidemia HTN (hypertension) CAD (coronary artery disease) Stent x 1 ~2009 BPH (benign prostatic hyperplasia) Osteoarthritis Ulcerative colitis dx prior to 2009 ? , sx intervention occ flare ups: none recent. Diabetes mellitus, type 2 NIDDM Carotid artery stenosis not that pt daughter aware of PTSD (post-traumatic stress disorder) Sleep apnea cpap, uses sometimes. Asthma last use rescue inhaler week of September [id number]. With Pollen flare. Poor historian Surgical History History of spinal fusion lumbar History of carpal tunnel release R History of colonoscopy History of herniorrhaphy R/L inguinal History of appendectomy History of bowel resection History of tooth extraction all teeth removed History of tonsillectomy History of cataract surgery left History of heart artery stent x1 , 2010 ? History of cardiac cath sob, c/p with stress test...2010 ? with 1 stent Family History Daughter Family history of reaction to anesthesia n/v Social History (Updated 02/03/25 @ 17:25 by Holly Goins PA-C) Smoking Status: Never smoker Tobacco Type: Cigarettes Cigarettes Per Day: 15 year; Second Hand Exposure: No; Do You Dip or Chew Tobacco: No; Hx Alcohol Use: No Hx Substance Use: No Preferred Language: Liberian Communication Ability: Effective Communication Ability Comment: phone interview with pt and pt daughter per his request. Global Supply Chain Director Required: No Beliefs That Will Affect Care: None Current Living Situation: Alone Feels Safe at Home: Yes Assistive Devices: Cane, CPAP, Crutches, Walker and Wheelchair Review of Systems Constitutional: Patient denies weight loss, Eyes: Patient denies change in vision, tearing, pain, and redness ENT: Patient denies pain, bleeding, rhinorrhea, and dysphagia Cardiovascular: Patient denies chest pain, palpitation, dyspnea at rest, and dyspnea with exertion Respiratory: Patient denies shortness of breath, cough, wheezing, and productive cough GI: Patient denies reflux, pain, constipation, and diarrhea Skin: Patient denies rash, dryness, and itching Allergies/Immune System: Patient denies rhinorrhea, seasonal allergies, reaction to current MEDS, and joint swelling Endocrine: Patient denies weight loss, weight gain, temperature intolerance, and excessive thirst Neurological: All negative unless mentioned in the HPI Physical Exam General Constitutional: Appearance normally developed Head and face: normocephalic and atraumatic Eyes: no ptosis, no anisocoria, and no dysconjugate gaze Respiratory: normal effort Cardiovascular: regular rhythm and regular rate Abdomen: non distended Skin: no rashes, lesions, or ulcers noted Psychiatric: normal judgement and insight, normal mood, and normal affect NEUROLOGIC EXAMINATION: Mental Status:alert, oriented to time, place, person, the nurse reports that he has been oriented to self only dueing the day. CN 2 - no visual defect on confrontation and pupils round, equal, reactive to light CN 3, 4, 6 - extra-ocular movements intact and no nystagmus CN 5 - facial sensation intact CN 7 - some difficulty with hearing CN 8 - intact hearing CN 9, 10 - palate symmetric, normal gag CN 11 - good shoulder shrug CN 12 - tongue midline MOTOR: Strength was at least antigravity throughout, Pronator drift was absent and There were no abnormal movements SENSATION: intact and symmetric to pinprick, light touch, vibration and joint position GAIT: using the rolling walker COORDINATION: no ataxia with finger to nose testing and heel to mcknight testing REFLEXES: cannot assess over telemedicine NIH Stroke Scale: 1a. Level of Consciousness: alert = 0 1b. LOC Questions: (month, age): both correct = 0 1c. LOC Commands (open and close eyes, make fist and let go using non-paretic hand): obeys both correctly = 0 2. Best Gaze (eyes open and patient follows examiner's finger or face): normal = 0 3. Visual (visual threat or finger counting in each quadrant): no loss = 0 4. Facial Palsy (show teeth, raise eye brows and squeeze eyes shut, or grimace symmetry in a comatose patient): normal = 0 5a. Motor Arm (extend arm (palms down) to 90 degrees and score drift/movement (10 seconds) - Left: no drift = 0 5b. Motor Arm: (extend arm (palms down) to 90 degrees and score drift/movement (10 seconds) - Right: no drift = 0 6a. Motor Leg (elevate leg 30 degrees and score drift/ movement (5 seconds) - Left: no drift = 0 6b. Motor Leg (elevate leg 30 degrees and score drift/ movement (5 seconds) - Right: no drift = 0 7. Limb Ataxia (finger to nose, heel down mcknight): absent = 0 8. Sensory (pin prick to face, arm, trunk and leg, compare side to side): normal = 0 9. Best Language: no aphasia = 0 10. Dysarthria (evaluate speech clarity by patient repeating listed words): normal articulation = 0 11. Extinction and Inattention: no neglect = 0 Total: 0 Results & Data Vital Signs (Past 12 Hours) Vital Signs Temp Pulse Resp BP Pulse Ox O2 Del Method 02/04/25 15:29 36.8 C 72 18 159/90 H 97 Room Air 02/04/25 12:29 36.7 C 64 18 155/88 H 92 Room Air 02/04/25 09:12 Room Air 02/04/25 08:27 36.7 C 64 18 177/92 H 95 Room Air Laboratory Results Laboratory Results - last 24 hr 02/03/25 02/03/25 02/04/25 21:45 Unknown 05:50 WBC 4.49 L RBC 4.89 Hgb 14.1 Hct 40.7 L MCV 83.2 MCH 28.8 MCHC 34.6 RDW Std Deviation 37.2 RDW Coeff of Gelacio 12.2 Plt Count 197 MPV 9.8 Sodium 141 Potassium 3.4 L Chloride 105 Carbon Dioxide 26 Anion Gap 10 BUN 26 H Creatinine 1.34 D Est Cr Clr Drug Dosing 60.0 eGFR 54.90 BUN/Creatinine Ratio 19.4 Glucose 91 POC Glucose 172 H Estimat Average Glucose 137 Hemoglobin A1c 6.4 H Calcium 8.5 L TSH 2.812 Urine Opiates Screen Neg Ur Methadone, Qual Neg Urine Fentanyl Screen Neg Urine Barbiturates Neg Ur Phencyclidine (PCP) Neg U Amphetamin/Meth Scrn Neg MDMA (Ecstasy) Screen Neg U Benzodiazepines Scrn Neg Ur Cocaine Metabolite Neg U Marijuana (THC) Screen Neg Adenovirus (PCR) Not Detected B. pertussis DNA (PCR) Not Detected B.parapertussis DNA PCR Not Detected C. pneumoniae DNA (PCR) Not Detected Coronavirus OC43 (PCR) Not Detected Coronavirus HKU1 (PCR) Not Detected Coronavirus 229E (PCR) Not Detected SARS-CoV-2 (PCR) DETECTED A Coronavirus NL63 (PCR) Not Detected Human Metapneumovir PCR Not Detected Influenza Type A (PCR) Not Detected Influenza Type B (PCR) Not Detected M. pneumoniae (PCR) Not Detected Parainfluenza 1 (PCR) Not Detected Parainfluenza 2 (PCR) Not Detected Parainfluenza 3 (PCR) Not Detected Parainfluenza 4 (PCR) Not Detected RSV (PCR) Not Detected Entero/Rhino (PCR) Not Detected 02/04/25 02/04/25 02/04/25 08:25 12:19 17:12 WBC RBC Hgb Hct MCV MCH MCHC RDW Std Deviation RDW Coeff of Gelacio Plt Count MPV Sodium Potassium Chloride Carbon Dioxide Anion Gap BUN Creatinine Est Cr Clr Drug Dosing eGFR BUN/Creatinine Ratio Glucose POC Glucose 95 104 H 121 H Estimat Average Glucose Hemoglobin A1c Calcium TSH Urine Opiates Screen Ur Methadone, Qual Urine Fentanyl Screen Urine Barbiturates Ur Phencyclidine (PCP) U Amphetamin/Meth Scrn MDMA (Ecstasy) Screen U Benzodiazepines Scrn Ur Cocaine Metabolite U Marijuana (THC) Screen Adenovirus (PCR) B. pertussis DNA (PCR) B.parapertussis DNA PCR C. pneumoniae DNA (PCR) Coronavirus OC43 (PCR) Coronavirus HKU1 (PCR) Coronavirus 229E (PCR) SARS-CoV-2 (PCR) Coronavirus NL63 (PCR) Human Metapneumovir PCR Influenza Type A (PCR) Influenza Type B (PCR) M. pneumoniae (PCR) Parainfluenza 1 (PCR) Parainfluenza 2 (PCR) Parainfluenza 3 (PCR) Parainfluenza 4 (PCR) RSV (PCR) Entero/Rhino (PCR) Diagnostic Findings Current workup includes MRI of the brain that shows no acute ischemic injuries. CTA shows no significant stenosis MRI of the brain shows significant atrophy, ventricular dilatation with transependymal flow within the ventricular cook concerning for NPH EKG shows normal sinus rhythm Echocardiogram shows EF about 60%, left atrium is mildly enlarged, right atrium is mildly enlarged, mild to moderate tricuspid regurgitation, mild pulmonary hypertension Medications Administered Home Medications Medication Instructions Recorded Confirmed Last Taken albuterol sulfate 90 mcg/actuation 2 puffs inhalation Q6H PRN 01/21/19 02/03/25 08/24/19 breath activated powder inhaler Shortness Of Breath atorvastatin 80 mg tablet 40 mg PO HS 01/21/19 02/03/25 12/08/23 cetirizine 10 mg capsule 10 mg PO QAM 01/21/19 02/03/25 02/03/25 cyanocobalamin (vitamin B-12) 500 500 mcg PO QAM 01/21/19 02/03/25 02/03/25 mcg tablet epinephrine 0.3 mg/0.3 mL 0.3 mg IM UD PRN bee stings 01/21/19 02/03/25 Unknown injection, auto-injector losartan 100 mg tablet 100 mg PO QAM 01/21/19 02/03/25 02/03/25 metformin 500 mg tablet 500 mg PO BID 01/21/19 02/03/25 02/03/25 meclizine 25 mg tablet 25 mg PO TID PRN dizziness #30 tabs 11/20/22 02/03/25 Unknown aspirin 81 mg tablet,delayed 81 mg PO DAILY 02/03/25 02/03/25 Unknown release cholecalciferol (vitamin D3) 25 25 mcg PO DAILY 02/03/25 02/03/25 Unknown mcg (1,000 unit) tablet (Vitamin D3) metoprolol succinate 25 mg 25 mg PO HS 02/03/25 02/03/25 02/02/25 tablet,extended release 24 hr pregabalin 50 mg capsule 50 mg PO BID 02/03/25 02/03/25 Unknown sennosides 8.6 mg-docusate sodium 1 tab PO DAILY 02/03/25 02/03/25 Unknown 50 mg tablet thiamine HCl (vitamin B1) 100 mg 100 mg PO DAILY 02/03/25 02/03/25 Unknown tablet tiotropium bromide 2.5 2 puff inhalation DAILY 02/03/25 02/03/25 Unknown mcg/actuation mist for inhalation Active Medications Generic Name Dose Route Start Last Admin Trade Name Ashley PRN Reason Stop Dose Admin Aspirin 81 mg 02/04/25 09:00 02/04/25 08:34 Aspirin 81 Mg Ectab PO 03/06/25 08:59 81 mg DAILY CRISTÓBAL Administration Atorvastatin Calcium 40 mg 02/03/25 21:00 02/03/25 22:41 Atorvastatin 40 Mg Tab PO 03/05/25 20:59 40 mg HS CRISTÓBAL Administration Cetirizine HCl 10 mg 02/04/25 09:00 02/04/25 08:34 Cetirizine Hcl 10 Mg Tablet PO 03/06/25 08:59 10 mg QAM CRISTÓBAL Administration Cyanocobalamin 500 mcg 02/04/25 09:00 02/04/25 08:35 Cyanocobalamin (B-12) 500 Mcg Tablet PO 03/06/25 08:59 500 mcg QAM CRISTÓBAL Administration Guaifenesin 600 mg 02/03/25 21:00 02/04/25 08:35 Guaifenesin 600 Mg Tabcr PO 03/05/25 20:59 600 mg Q12 CRISTÓBAL Administration Heparin Sodium (Porcine) 5,000 units 02/03/25 21:00 02/04/25 09:05 Heparin Sod 5,000 Unit/0.5 Ml Vial SQ 03/05/25 20:59 5,000 units Q12 CRISTÓBAL Administration Insulin Aspart 0 units 02/03/25 21:00 02/04/25 17:29 Insulin Aspart Per Unit Charge SC 03/05/25 20:59 Not Given ACHS CRISTÓBAL Lidocaine 1 patch 02/04/25 15:45 02/04/25 16:06 Lidocaine 5% 1 Patch TD 03/06/25 15:44 1 patch QAM CRISTÓBAL Administration Losartan Potassium 100 mg 02/04/25 09:00 02/04/25 08:34 Losartan Potassium 50 Mg Tab PO 03/06/25 08:59 100 mg QAM CRISTÓBAL Administration Metoprolol Succinate 25 mg 02/03/25 21:00 02/03/25 22:40 Metoprolol Succ 25mg Ext Rel Tab PO 03/05/25 20:59 25 mg HS CRISTÓBAL Administration Olanzapine 5 mg 02/04/25 14:25 02/04/25 15:26 Olanzapine 10 Mg/2.1 Ml Sdv IM 03/06/25 14:29 5 mg Q8H PRN Administration agitation Senna/Docusate Sodium 1 tab 02/04/25 09:00 02/04/25 09:05 Docusate Sodium/Senna 50/8.6mg Tab PO 03/06/25 08:59 1 tab DAILY CRISTÓBAL Administration Thiamine HCl 100 mg 02/04/25 09:00 02/04/25 08:35 Thiamine Hcl 100 Mg Tab PO 03/06/25 08:59 100 mg DAILY CRISTÓBAL Administration Umeclidinium/Vilanterol 1 puffs 02/04/25 09:00 02/04/25 09:05 Umeclidinium/Vilanterol 62.5/25mcg 7 Puffs/Inhaler INH 03/06/25 08:59 1 puffs DAILY CRISTÓBAL Administration Vitamin D 25 mcg 02/04/25 09:00 02/04/25 08:35 Cholecalciferol 25 Mcg (1000 Units) Tab PO 03/06/25 08:59 25 mcg DAILY CRISTÓBAL Administration
[2025-02-04] MEDS: GABAPENTIN 100 MG CAP PO ONE (17:29)
[2025-02-04] MEDS: REMOVE LIDODERM PATCH SCH (21:44)
[2025-02-04] MEDS: GABAPENTIN 100 MG CAP PO SCH (21:45)
--- NOTE | 2025-02-05 15:08 | Hospitalist Progress Note ---
Date of Service February 05, 2025 Assessment & Plan (1) URI (upper respiratory infection): (2) Staring episodes: Plan 75 year old male with PMH of HTN, HLD, DM II, CKD III, neuropathy, asthma, CRISELDA intolerant to CPAP, vitamin B12 deficiency, BPH, and others listed below presented to ER for possible seizure 02/03. H/O recurrent falls. Reported head injury 11/2024 and since with episodes of "staring and zoning out" and recurrent daily RAMIREZ's. 02/03 w/ an episode in front of healthcare provider. No bowel/bladder incontinence. Staring episodes: Likely side effects of meds Worsening gait balance: over last several months w/ intermittent confusion per dtr. At presentation, no significant electrolyte abnormality CT Head: No acute intracranial findings. CTA Head: There is no evidence of hemorrhage or mass effect noting angiographic phase technique. Unremarkable CT angiogram of the brain. CTA Neck:No significant arterial narrowing or occlusion seen in the neck. MRI brain w/ no acute finding. ?Seizure, possible syncopal episodes, possible med side effect Multiple staring episodes noted after starting pregabalin about 3 weeks ago per dtr Seizure precautions no more staring episodes since yesterday per RN. EEG pending Neurology consult, concern for NPH, recs are OP NPH clinic eval and neurosurgical referral. DC'd pregabalin Recurrent falls: History recurrent falls past several months. Fall precautions. PT/OT eval Neuropathy: Previously trialed on gabapentin, amitriptyline which have since discontinued. Currently on pregabalin which will hold for now given symptoms. f/u with neuro on dc.will c/w gabapentin for restless leg URI (upper respiratory infection): COVID 19 infection Ho asthma Nasal congestion, cough, myalgias x 1 week CXR: no acute infiltrate No leukocytosis, afebrile No wheezing on exam. COVID 19 +ve, pt has cough w/ scant clear sputum c/w albuterol prn, home tiotropium, mucinex. Acute Kidney Injury on CKD III Admitting Cr: 1.75. Cr was 1.3 on 10/26/24 Likely prerenal given acute illness/poor intake ONLINE [facility]. s/p ivf, CR improved to 1.34 Monitor renal functions, avoid nephrotoxic agents when possible Other chronic medical conditions: Continue with/resume home meds as and when able. T2DM: Hold home metformin, sliding scale insulin while in hospital. A1c of 6.4 this admission. HTN/CAD/HLD: Continue with home losartan, metoprolol, atorvastatin. Sleep apnea: Intolerant to CPAP per patient. BPH: Follows urology as an outpatient, Dtr reports pt is off of BPH meds. DVT prophylaxis: SQ heparin Full code Follows with [facility] for routine care. pt's dtr updated over the phone 02/05. Admission and Anticipated Discharge Date Admission Date: February 03, 2025 Subjective Patient was seen and examined at bedside. Patient was lying in bed, on room air, NAD, resting comfortably. Patient reports cough with scant sputum, clear. Reports feeling better today. Per RN, no more staring episodes, eating ok and moving bowels ok. Physical Exam Physical Exam: General: no distress, overweight elderly male, appears chronically ill, on RA Head: normocephalic, atraumatic Eyes: PERRL, EOM's intact, conjunctiva non-injected, anicteric ENT: +hard of hearing, normal inspection external ears, nose, mucous membranes moist, no pharynx erythema or edema, uvula midline Neck: supple, trachea midline, non-tender Lungs: clear, no respiratory distress, no wheezing/rhonchi/rales CV: RRR, no murmur, no pretibial edema Abd: normal BS, soft, non-tender Ext: no cyanosis, no calf tenderness Neuro: Alert. oriented to person, place, month and year. No focal deficits noted, normal affect Skin: warm, dry Results & Data Results & Data Vital Signs (Past 12 Hours) Vital Signs Temp Pulse Resp BP Pulse Ox O2 Del Method 02/05/25 11:31 36.6 C 69 18 148/95 H 96 Room Air 02/05/25 07:12 36.5 C 62 18 173/86 H 94 Room Air
[2025-02-06 06:20] LABS: Hematocrit (blood only) 38.5 % (42.0-52.0); Hemoglobin 13.6 g/dl (14.0-18.0); Mean Corpuscular Hemoglobin 29.0 pg (25.0-34.0); Mean Corpuscular Volume 82.1 fL (80.0-100.0); Platelet Count 190 K/uL (130-400); RDW Standard Deviation 36.4 fL (36.4-46.3); Red Blood Count 4.69 M/uL (4.70-6.10); White Blood Count 4.14 K/ul (4.8-10.8)
[2025-02-06 06:43] LABS: Anion Gap 10.0 (3-11); Blood Urea Nitrogen 20.0 mg/dl (6-23); Calcium 8.5 mg/dl (8.6-10.3); Carbon Dioxide 22.0 mmol/L (21-32); Chloride 110.0 mmol/L (98-107); Creatinine Clr Calc Pharmacy 67.2 ml/min; Glucose 96.0 mg/dl (70-99(Fasting)); Magnesium 1.6 mg/dl (1.7-2.4); Potassium 3.3 mmol/L (3.5-5.1); Sodium 142.0 mmol/L (136-145)
[2025-02-06] MEDS: POTASSIUM CHLORIDE CRTAB 20 MEQ TABCR PO STA (09:16)
[2025-02-06] MEDS: ACETAMINOPHEN 325 MG TAB PO PRN (09:16)
[2025-02-06] MEDS: MAGNESIUM SULFATE / D5W 1 GM/100 ML BAG IV SCH (09:17)
--- NOTE | 2025-02-06 13:42 | Hospitalist Progress Note ---
Date of Service February 06, 2025 Assessment & Plan (1) URI (upper respiratory infection): (2) Staring episodes: Plan 75 year old male with PMH of HTN, HLD, DM II, CKD III, neuropathy, asthma, CRISELDA intolerant to CPAP, vitamin B12 deficiency, BPH, and others listed below presented to ER for possible seizure 02/03. H/O recurrent falls. Reported head injury 11/2024 and since with episodes of "staring and zoning out" and recurrent daily RAMIREZ's. 02/03 w/ an episode in front of healthcare provider. No bowel/bladder incontinence. Staring episodes: Likely side effects of meds Worsening gait balance: over last several months w/ intermittent confusion per dtr. At presentation, no significant electrolyte abnormality CT Head: No acute intracranial findings. CTA Head: There is no evidence of hemorrhage or mass effect noting angiographic phase technique. Unremarkable CT angiogram of the brain. CTA Neck:No significant arterial narrowing or occlusion seen in the neck. MRI brain w/ no acute finding. ?Seizure, possible syncopal episodes, possible med side effect Multiple staring episodes noted after starting pregabalin about 3 weeks ago per dtr Seizure precautions no more staring episodes since yesterday per RN. EEG read pending Neurology evaled, concern for NPH, recs are OP [facility] clinic eval and neurosurgical referral. DC'd pregabalin Recurrent falls: History recurrent falls past several months. Fall precautions. PT/OT eval Neuropathy: Previously trialed on gabapentin, amitriptyline which have since dis continued. Currently on pregabalin which will hold for now given symptoms. f/u with neuro on dc.will c/w gabapentin for restless leg URI (upper respiratory infection): COVID 19 infection Ho asthma Nasal congestion, cough, myalgias x 1 week CXR: no acute infiltrate No leukocytosis, afebrile No wheezing on exam. COVID 19 +ve, pt has cough w/ scant clear sputum c/w albuterol prn, home tiotropium, mucinex. Acute Kidney Injury on CKD III Admitting Cr: 1.75. 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 T2DM: Hold home metformin, sliding scale insulin while in hospital. A1c of 6.4 this admission. HTN/CAD/HLD: Continue with home losartan, metoprolol, atorvastatin. Sleep apnea: Intolerant to CPAP per patient. BPH: Follows urology as an outpatient, Dtr reports pt is off of BPH meds. DVT prophylaxis: SQ heparin Full code Follows with [facility] for routine care. pt's dtr updated over the phone 02/05. Dispo: stable for DC to rehab Admission and Anticipated Discharge Date Admission Date: February 03, 2025 Subjective Patient was seen and examined at bedside. Patient was lying in bed, on room air, NAD, resting comfortably. Patient reports cough improving. Reports feeling better. Per RN, no more staring episodes, eating ok and moving bowels ok. Physical Exam Physical Exam: General: no distress, overweight elderly male, appears chronically ill, on RA Head: normocephalic, atraumatic Eyes: PERRL, EOM's intact, conjunctiva non-injected, anicteric ENT: +hard of hearing, normal inspection external ears, nose, mucous membranes moist, no pharynx erythema or edema, uvula midline Neck: supple, trachea midline, non-tender Lungs: clear, no respiratory distress, no wheezing/rhonchi/rales CV: RRR, no murmur, no pretibial edema Abd: normal BS, soft, non-tender Ext: no cyanosis, no calf tenderness Neuro: Alert. oriented to person, place, month and year. No focal deficits noted, normal affect Skin: warm, dry Results & Data Results & Data Vital Signs (Past 12 Hours) Vital Signs Temp Pulse Pulse Resp BP BP Pulse Ox 02/06/25 11:12 02/06/25 11:12 36.2 C L 75 21 154/78 H 96 02/06/25 07:46 36.5 C 67 20 175/103 H 97 02/06/25 07:29 67 02/06/25 03:32 36.7 C 61 16 183/95 H 94 O2 Del Method 02/06/25 11:12 Room Air 02/06/25 11:12 Room Air 02/06/25 07:46 Room Air 02/06/25 07:29 02/06/25 03:32 Room Air
[2025-02-07 06:06] LABS: Hematocrit (blood only) 39.1 % (42.0-52.0); Hemoglobin 13.0 g/dl (14.0-18.0); Mean Corpuscular Hemoglobin 27.5 pg (25.0-34.0); Mean Corpuscular Volume 82.8 fL (80.0-100.0); Platelet Count 183 K/uL (130-400); RDW Standard Deviation 37.3 fL (36.4-46.3); Red Blood Count 4.72 M/uL (4.70-6.10); White Blood Count 4.49 K/ul (4.8-10.8)
[2025-02-07 06:24] LABS: Anion Gap 6.0 (3-11); Blood Urea Nitrogen 18.0 mg/dl (6-23); Calcium 8.6 mg/dl (8.6-10.3); Carbon Dioxide 24.0 mmol/L (21-32); Chloride 112.0 mmol/L (98-107); Creatinine Clr Calc Pharmacy 74.7 ml/min; Glucose 112.0 mg/dl (70-99(Fasting)); Magnesium 1.7 mg/dl (1.7-2.4); Potassium 3.6 mmol/L (3.5-5.1); Sodium 142.0 mmol/L (136-145)
[2025-02-07] MEDS: LACTULOSE SYRUP 20 GM/30 ML UDC PO ONE (12:31)
--- NOTE | 2025-02-07 13:38 | Hospitalist Progress Note ---
Date of Service February 07, 2025 Assessment & Plan (1) URI (upper respiratory infection): (2) Staring episodes: Plan 75 year old male with PMH of HTN, HLD, DM II, CKD III, neuropathy, asthma, CRISELDA intolerant to CPAP, vitamin B12 deficiency, BPH, and others listed below presented to ER for possible seizure 02/03. H/O recurrent falls. Reported head injury 11/2024 and since with episodes of "staring and zoning out" and recurrent daily RAMIREZ's. 02/03 w/ an episode in front of healthcare provider. No bowel/bladder incontinence. Staring episodes: Likely side effects of meds Worsening gait balance: over last several months w/ intermittent confusion per dtr. At presentation, no significant electrolyte abnormality CT Head: No acute intracranial findings. CTA Head: There is no evidence of hemorrhage or mass effect noting angiographic phase technique. Unremarkable CT angiogram of the brain. CTA Neck:No significant arterial narrowing or occlusion seen in the neck. MRI brain w/ no acute finding. ?Seizure, possible syncopal episodes, possible med side effect Multiple staring episodes noted after starting pregabalin about 3 weeks ago per dtr Seizure precautions no more staring episodes per RN. EEG read pending Neurology evaled, concern for NPH, recs are OP NPH clinic eval and neurosurgical referral. DC'd pregabalin Recurrent falls: History recurrent falls past several months. Fall precautions. PT/OT eval Neuropathy: Previously trialed on gabapentin, amitriptyline which have since discontinued. Currently on pregabalin which will hold for now given symptoms. f/u with neuro on dc.will c/w gabapentin for restless leg URI (upper respiratory infection): COVID 19 infection Ho asthma Nasal congestion, cough, myalgias x 1 week CXR: no acute infiltrate No leukocytosis, afebrile No wheezing on exam. COVID 19 +ve, pt has cough w/ scant clear sputum c/w albuterol prn, home tiotropium, mucinex. Acute Kidney Injury on CKD III Admitting Cr: 1.75. 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 T2DM: Hold home metformin, sliding scale insulin while in hospital. A1c of 6.4 this admission. HTN/CAD/HLD: Continue with home losartan, metoprolol, atorvastatin. Sleep apnea: Intolerant to CPAP per patient. BPH: Follows urology as an outpatient, Dtr reports pt is off of BPH meds. DVT prophylaxis: SQ heparin Full code Follows with [facility] for routine care. pt's dtr updated over the phone 02/05. Dispo: stable for DC to rehab Admission and Anticipated Discharge Date Admission Date: February 03, 2025 Subjective Patient was seen and examined at bedside. Patient was lying in bed, on room air, NAD, resting comfortably. Patient reports cough improving. Reports feeling better. Per RN, no more staring episodes, eating ok, no bowels movement. Physical Exam Physical Exam: General: no distress, overweight elderly male, appears chronically ill, on RA Head: normocephalic, atraumatic Eyes: PERRL, EOM's intact, conjunctiva non-injected, anicteric ENT: +hard of hearing, normal inspection external ears, nose, mucous membranes moist, no pharynx erythema or edema, uvula midline Neck: supple, trachea midline, non-tender Lungs: clear, no respiratory distress, no wheezing/rhonchi/rales CV: RRR, no murmur, no pretibial edema Abd: normal BS, soft, non-tender Ext: no cyanosis, no calf tenderness Neuro: Alert. oriented to person, place, month and year. No focal deficits noted, normal affect Skin: warm, dry Results & Data Results & Data Vital Signs (Past 12 Hours) Vital Signs Temp Pulse Pulse Resp BP Pulse Ox O2 Del Method 02/07/25 11:02 36.9 C 65 22 142/79 H 95 Room Air 02/07/25 07:47 Room Air 02/07/25 07:23 36.5 C 62 20 141/77 H 96 Room Air 02/07/25 07:20 59 L 02/07/25 03:16 36.3 C L 76 17 133/84 94 Room Air
[2025-02-07] MEDS: POTASSIUM CHLORIDE CRTAB 20 MEQ TABCR PO STA (14:24)
[2025-02-07] MEDS: MAGNESIUM SULFATE / D5W 1 GM/100 ML BAG IV SCH (14:25)
[2025-02-08] MEDS: LOSARTAN POTASSIUM 50 MG TAB PO SCH (05:26)
--- NOTE | 2025-02-08 05:44 | Electrocardiogram Report ---
Test Reason : Blood Pressure : */* mmHG Vent. Rate : 65 BPM Atrial Rate : 65 BPM P-R Int : 128 ms QRS Dur : 92 ms QT Int : 434 ms P-R-T Axes : 18 -20 -31 degrees QTcB Int : 451 ms Normal sinus rhythm Nonspecific T wave abnormality Abnormal ECG When compared with ECG of 20-Nov-2022 17:42, Nonspecific T wave abnormality now evident in Inferior leads Nonspecific T wave abnormality, worse in Lateral leads QT has shortened Confirmed by Jame Saravia ([id number]) on 02/08/2025 5:43:46 AM Referred By: Confirmed By: Jame Saravia
[2025-02-08] MEDS: FAMOTIDINE 20MG IV PUSH 20 MG/5 ML SYR IV ONE (05:52)
[2025-02-08 06:15] LABS: Hematocrit (blood only) 41.7 % (42.0-52.0); Hemoglobin 13.8 g/dl (14.0-18.0); Mean Corpuscular Hemoglobin 27.3 pg (25.0-34.0); Mean Corpuscular Volume 82.6 fL (80.0-100.0); Platelet Count 212 K/uL (130-400); RDW Standard Deviation 37.3 fL (36.4-46.3); Red Blood Count 5.05 M/uL (4.70-6.10); White Blood Count 4.41 K/ul (4.8-10.8)
[2025-02-08 06:32] LABS: Anion Gap 7.0 (3-11); Blood Urea Nitrogen 16.0 mg/dl (6-23); Calcium 8.6 mg/dl (8.6-10.3); Carbon Dioxide 21.0 mmol/L (21-32); Chloride 113.0 mmol/L (98-107); Creatinine Clr Calc Pharmacy 74.9 ml/min; Glucose 105.0 mg/dl (70-99(Fasting)); Magnesium 1.7 mg/dl (1.7-2.4); Potassium 3.9 mmol/L (3.5-5.1); Sodium 141.0 mmol/L (136-145)
--- NOTE | 2025-02-08 06:53 | Electrocardiogram Report ---
Test Reason : Blood Pressure : */* mmHG Vent. Rate : 64 BPM Atrial Rate : 64 BPM P-R Int : 168 ms QRS Dur : 86 ms QT Int : 428 ms P-R-T Axes : 42 -30 -37 degrees QTcB Int : 441 ms Normal sinus rhythm with sinus arrhythmia Left axis deviation Nonspecific T wave abnormality Abnormal ECG When compared with ECG of 03-Feb-2025 13:18, No significant change was found Confirmed by Konrad Guerin ([id number] on 02/08/2025 6:52:38 AM Referred By: REFERRED SELF Confirmed By: Konrda Guerin
--- NOTE | 2025-02-08 11:32 | Hospitalist Progress Note ---
Date of Service February 08, 2025 Assessment & Plan (1) URI (upper respiratory infection): (2) Staring episodes: Plan 75 year old male with PMH of HTN, HLD, DM II, CKD III, neuropathy, asthma, CRISELDA intolerant to CPAP, vitamin B12 deficiency, BPH, and others listed below presented to ER for possible seizure 02/03. H/O recurrent falls. Reported head injury 11/2024 and since with episodes of "staring and zoning out" and recurrent daily RAMIREZ's. 02/03 w/ an episode in front of healthcare provider. No bowel/bladder incontinence. Staring episodes: Likely side effects of meds Worsening gait balance: over last several months w/ intermittent confusion per dtr. At presentation, no significant electrolyte abnormality CT Head: No acute intracranial findings. CTA Head: There is no evidence of hemorrhage or mass effect noting angiographic phase technique. Unremarkable CT angiogram of the brain. CTA Neck:No significant arterial narrowing or occlusion seen in the neck. MRI brain w/ no acute finding. ?Seizure, possible syncopal episodes, possible med side effect Multiple staring episodes noted after starting pregabalin about 3 weeks ago per dtr Seizure precautions no more staring episodes per RN. EEG read pending Neurology evaled, concern for NPH, recs are OP N[facility] clinic eval and neurosurgical referral. DC'd pregabalin Recurrent falls: History recurrent falls past several months. Fall precautions. PT/OT eval Neuropathy: Previously trialed on gabapentin, amitriptyline which have since discontinued. Currently on pregabalin which will hold for now given symptoms. f/u with neuro on dc.will c/w gabapentin for restless leg URI (upper respiratory infection): COVID 19 infection Ho asthma Nasal congestion, cough, myalgias x 1 week CXR: no acute infiltrate No leukocytosis, afebrile No wheezing on exam. COVID 19 +ve, pt has cough w/ scant clear sputum c/w albuterol prn, home tiotropium, mucinex. Acute Kidney Injury on CKD III Admitting Cr: 1.75. 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 T2DM: Hold home metformin, sliding scale insulin while in hospital. A1c of 6.4 this admission. HTN/CAD/HLD: Continue with home losartan, metoprolol, atorvastatin. Sleep apnea: Intolerant to CPAP per patient. BPH: Follows urology as an outpatient, Dtr reports pt is off of BPH meds. DVT prophylaxis: SQ heparin Full code Follows with [place] [facility] for routine care. pt's dtr updated over the phone 02/05. Dispo: stable for DC to rehab Admission and Anticipated Discharge Date Admission Date: February 03, 2025 Subjective Patient was seen and examined at bedside. Patient was lying in bed, on room air, NAD, resting comfortably. Patient reports cough improving. Reports feeling better. Per RN,eating ok, + bowels movement. Physical Exam Physical Exam: General: no distress, overweight elderly male, appears chronically ill, on RA Head: normocephalic, atraumatic Eyes: PERRL, EOM's intact, conjunctiva non-injected, anicteric ENT: +hard of hearing, normal inspection external ears, nose, mucous membranes moist, no pharynx erythema or edema, uvula midline Neck: supple, trachea midline, non-tender Lungs: clear, no respiratory distress, no wheezing/rhonchi/rales CV: RRR, no murmur, no pretibial edema Abd: normal BS, soft, non-tender Ext: no cyanosis, no calf tenderness Neuro: Alert. oriented to person, place, month and year. No focal deficits noted, normal affect Skin: warm, dry Results & Data Results & Data Vital Signs (Past 12 Hours) Vital Signs Temp Pulse Pulse Resp BP BP Pulse Ox 02/08/25 07:45 36.4 C L 86 21 141/82 H 95 02/08/25 04:48 176/100 H 02/08/25 03:56 36.6 C 61 18 181/101 H 181/90 H 97 02/08/25 00:17 66 02/07/25 23:47 36.4 C L 72 18 162/93 H 95 O2 Del Method 02/08/25 07:45 Room Air 02/08/25 04:48 02/08/25 03:56 Room Air 02/08/25 00:17 02/07/25 23:47 Room Air
[2025-02-09] MEDS: hydroCHLOROthiazide 25 MG TAB PO SCH (13:24)
--- NOTE | 2025-02-09 14:11 | Hospitalist Progress Note ---
Date of Service February 09, 2025 Assessment & Plan (1) URI (upper respiratory infection): (2) Staring episodes: Plan 75 year old male with PMH of HTN, HLD, DM II, CKD III, neuropathy, asthma, CRISELDA intolerant to CPAP, vitamin B12 deficiency, BPH, and others listed below presented to ER for possible seizure 02/03. H/O recurrent falls. Reported head injury 11/2024 and since with episodes of "staring and zoning out" and recurrent daily RAMIREZ's. 02/03 w/ an episode in front of healthcare provider. No bowel/bladder incontinence. Staring episodes: Likely side effects of meds Worsening gait balance: over last several months w/ intermittent confusion per dtr. At presentation, no significant electrolyte abnormality CT Head: No acute intracranial findings. CTA Head: There is no evidence of hemorrhage or mass effect noting angiographic phase technique. Unremarkable CT angiogram of the brain. CTA Neck:No significant arterial narrowing or occlusion seen in the neck. MRI brain w/ no acute finding. ?Seizure, possible syncopal episodes, possible med side effect Multiple staring episodes noted after starting pregabalin about 3 weeks ago per dtr Seizure precautions no more staring episodes per RN. EEG read pending Neurology evaled, concern for NPH, recs are OP [facility] clinic eval and neurosurgical referral. DC'd pregabalin Recurrent falls: History recurrent falls past several months. Fall precautions. PT/OT eval Neuropathy: Previously trialed on gabapentin, amitriptyline which have since discontinued. Currently on pregabalin which will hold for now given symptoms. f/u with neuro on dc.will c/w gabapentin for restless leg URI (upper respiratory infection): COVID 19 infection Ho asthma Nasal congestion, cough, myalgias x 1 week CXR: no acute infiltrate No leukocytosis, afebrile No wheezing on exam. COVID 19 +ve, pt has cough w/ scant clear sputum c/w albuterol prn, home tiotropium, mucinex. Acute Kidney Injury on CKD III Admitting Cr: 1.75. 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 T2DM: Hold home metformin, sliding scale insulin while in hospital. A1c of 6.4 this admission. HTN/CAD/HLD: Continue with home losartan, metoprolol, atorvastatin. Since BP remains elevated add low dose HCTZ. Sleep apnea: Intolerant to CPAP per patient. BPH: Follows urology as an outpatient, Dtr reports pt is off of BPH meds. DVT prophylaxis: SQ heparin Full code Follows with [place] [facility] for routine care. pt's dtr updated over the phone 02/05. Dispo: stable for DC to rehab Admission and Anticipated Discharge Date Admission Date: February 03, 2025 Subjective Patient was seen and examined at bedside. Patient was lying in bed, on room air, NAD, resting comfortably. Patient reports cough improving. Reports feeling better. Per RN,eating ok, no issues overnight. Physical Exam Physical Exam: General: no distress, overweight elderly male, appears chronically ill, on RA Head: normocephalic, atraumatic Eyes: PERRL, EOM's intact, conjunctiva non-injected, anicteric ENT: +hard of hearing, normal inspection external ears, nose, mucous membranes moist, no pharynx erythema or edema, uvula midline Neck: supple, trachea midline, non-tender Lungs: clear, no respiratory distress, no wheezing/rhonchi/rales CV: RRR, no murmur, no pretibial edema Abd: normal BS, soft, non-tender Ext: no cyanosis, no calf tenderness Neuro: Alert. oriented to person, place, month and year. No focal deficits noted, normal affect Skin: warm, dry Results & Data Results & Data Vital Signs (Past 12 Hours) Vital Signs Temp Pulse Pulse Resp BP Pulse Ox O2 Del Method 02/09/25 11:08 36.5 C 66 17 120/74 95 Room Air 02/09/25 08:37 36.4 C L 79 17 134/65 96 Room Air 02/09/25 07:29 65 02/09/25 02:57 36.7 C 76 18 121/67 94 Room Air
[2025-02-09] MEDS: POLYETHYLENE (MIRALAX) 17 GM PACK PO PRN (19:53)
[2025-02-10 07:14] LABS: Anion Gap 7.0 (3-11); Blood Urea Nitrogen 17.0 mg/dl (6-23); Calcium 8.9 mg/dl (8.6-10.3); Carbon Dioxide 23.0 mmol/L (21-32); Chloride 111.0 mmol/L (98-107); Creatinine Clr Calc Pharmacy 71.2 ml/min; Glucose 104.0 mg/dl (70-99(Fasting)); Magnesium 1.7 mg/dl (1.7-2.4); Potassium 3.9 mmol/L (3.5-5.1); Sodium 141.0 mmol/L (136-145)
--- NOTE | 2025-02-10 12:52 | Electroencephalogram ---
EEG Procedure Note Date of Service February 04, 2025 Start / End Times Start Time: 610 End Time: 630 Referring Physician Holly Goins History A 75-year-old male with confusion. EEG performed for evaluation of epileptiform activity. Home Medication List Medication Instructions Recorded Confirmed Type albuterol sulfate 90 mcg/actuation 2 puffs inhalation Q6H PRN 01/21/19 02/03/25 History breath activated powder inhaler Shortness Of Breath atorvastatin 80 mg tablet 40 mg PO HS 01/21/19 02/03/25 History cetirizine 10 mg capsule 10 mg PO QAM 01/21/19 02/03/25 History cyanocobalamin (vitamin B-12) 500 500 mcg PO QAM 01/21/19 02/03/25 History mcg tablet epinephrine 0.3 mg/0.3 mL 0.3 mg IM UD PRN bee stings 01/21/19 02/03/25 History injection, auto-injector losartan 100 mg tablet 100 mg PO QAM 01/21/19 02/03/25 History metformin 500 mg tablet 500 mg PO BID 01/21/19 02/03/25 History meclizine 25 mg tablet 25 mg PO TID PRN dizziness #30 tabs 11/20/22 02/03/25 Rx aspirin 81 mg tablet,delayed 81 mg PO DAILY 02/03/25 02/03/25 History release cholecalciferol (vitamin D3) 25 25 mcg PO DAILY 02/03/25 02/03/25 History mcg (1,000 unit) tablet (Vitamin D3) metoprolol succinate 25 mg 25 mg PO HS 02/03/25 02/03/25 History tablet,extended release 24 hr pregabalin 50 mg capsule 50 mg PO BID 02/03/25 02/03/25 History sennosides 8.6 mg-docusate sodium 1 tab PO DAILY 02/03/25 02/03/25 History 50 mg tablet thiamine HCl (vitamin B1) 100 mg 100 mg PO DAILY 02/03/25 02/03/25 History tablet tiotropium bromide 2.5 2 puff inhalation DAILY 02/03/25 02/03/25 History mcg/actuation mist for inhalation Inpatient Medication List Acetaminophen (Acetaminophen 325 Mg Tab) 650 mg PO Q4H PRN PRN Reason: Pain or Fever Stop: 03/05/25 19:39 Last Admin: 02/07/25 13:25 Dose: 650 mg Documented By: Admin: 02/06/25 09:16 Dose: 650 mg Documented By: ANIA Aspirin (Aspirin 81 Mg Ectab) 81 mg PO DAILY CRISTÓBAL Stop: 03/06/25 08:59 Last Admin: 02/10/25 08:07 Dose: 81 mg Documented By: Admin: 02/09/25 09:22 Dose: 81 mg Documented By: Admin: 02/08/25 08:43 Dose: 81 mg Documented By: Admin: 02/07/25 09:05 Dose: 81 mg Documented By: Admin: 02/06/25 09:02 Dose: 81 mg Documented By: Admin: 02/05/25 09:28 Dose: 81 mg Documented By: Admin: 02/04/25 08:34 Dose: 81 mg Documented By: AM Atorvastatin Calcium (Atorvastatin 40 Mg Tab) 40 mg PO HS CRISTÓBAL Stop: 03/05/25 20:59 Last Admin: 02/09/25 19:53 Dose: 40 mg Documented By: Admin: 02/08/25 20:16 Dose: 40 mg Documented By: Admin: 02/07/25 20:52 Dose: 40 mg Documented By: Admin: 02/06/25 20:50 Dose: 40 mg Documented By: Admin: 02/05/25 20:20 Dose: 40 mg Documented By: Admin: 02/04/25 21:44 Dose: 40 mg Documented By: Admin: 02/03/25 22:41 Dose: 40 mg Documented By: JORGE Cetirizine HCl (Cetirizine Hcl 10 Mg Tablet) 10 mg PO QAM CRISTÓBAL Stop: 03/06/25 08:59 Last Admin: 02/10/25 08:07 Dose: 10 mg Documented By: Admin: 02/09/25 09:22 Dose: 10 mg Documented By: Admin: 02/08/25 08:42 Dose: 10 mg Documented By: Admin: 02/07/25 09:05 Dose: 10 mg Documented By: Admin: 02/06/25 09:02 Dose: 10 mg Documented By: Admin: 02/05/25 09:29 Dose: 10 mg Documented By: Admin: 02/04/25 08:34 Dose: 10 mg Documented By: AM Cyanocobalamin (Cyanocobalamin (B-12) 500 Mcg Tablet) 500 mcg PO QAM CRISTÓBAL Stop: 03/06/25 08:59 Last Admin: 02/10/25 08:07 Dose: 500 mcg Documented By: Admin: 02/09/25 09:26 Dose: 500 mcg Documented By: Admin: 02/08/25 08:42 Dose: 500 mcg Documented By: Admin: 02/07/25 09:06 Dose: 500 mcg Documented By: Admin: 02/06/25 09:02 Dose: 500 mcg Documented By: Admin: 02/05/25 09:29 Dose: 500 mcg Documented By: Admin: 02/04/25 08:35 Dose: 500 mcg Documented By: AM Gabapentin (Gabapentin 100 Mg Cap) 100 mg PO HS CRISTÓBAL Stop: 03/06/25 20:59 Last Admin: 02/09/25 19:53 Dose: 100 mg Documented By: Admin: 02/08/25 20:16 Dose: 100 mg Documented By: Admin: 02/07/25 20:52 Dose: 100 mg Documented By: Admin: 02/06/25 20:50 Dose: 100 mg Documented By: Admin: 02/05/25 20:20 Dose: 100 mg Documented By: Admin: 02/04/25 21:45 Dose: 100 mg Documented By: JORGE Guaifenesin (Guaifenesin 600 Mg Tabcr) 600 mg PO Q12 CRISTÓBAL Stop: 03/05/25 20:59 Last Admin: 02/10/25 08:07 Dose: 600 mg Documented By: Admin: 02/09/25 19:53 Dose: 600 mg Documented By: Admin: 02/09/25 09:22 Dose: 600 mg Documented By: Admin: 02/08/25 20:16 Dose: 600 mg Documented By: Admin: 02/08/25 08:42 Dose: 600 mg Documented By: Admin: 02/07/25 20:52 Dose: 600 mg Documented By: Admin: 02/07/25 09:05 Dose: 600 mg Documented By: Admin: 02/06/25 20:50 Dose: 600 mg Documented By: Admin: 02/06/25 09:02 Dose: 600 mg Documented By: Admin: 02/05/25 20:20 Dose: 600 mg Documented By: Admin: 02/05/25 09:29 Dose: 600 mg Documented By: Admin: 02/04/25 21:44 Dose: 600 mg Documented By: Admin: 02/04/25 08:35 Dose: 600 mg Documented By: Admin: 02/03/25 22:41 Dose: 600 mg Documented By: JORGE Heparin Sodium (Porcine) (Heparin Sod 5,000 Unit/0.5 Ml Vial) 5,000 units SQ Q12 CRISTÓBAL Stop: 03/05/25 20:59 Last Admin: 02/10/25 08:08 Dose: Not Given Documented By: Admin: 02/09/25 19:54 Dose: 5,000 units Documented By: Admin: 02/09/25 09:26 Dose: 5,000 units Documented By: Admin: 02/08/25 20:03 Dose: 5,000 units Documented By: Admin: 02/08/25 08:42 Dose: 5,000 units Documented By: Admin: 02/07/25 20:51 Dose: 5,000 units Documented By: Admin: 02/07/25 09:06 Dose: 5,000 units Documented By: Admin: 02/06/25 20:50 Dose: 5,000 units Documented By: Admin: 02/06/25 09:01 Dose: 5,000 units Documented By: Admin: 02/05/25 20:17 Dose: 5,000 units Documented By: Admin: 02/05/25 09:29 Dose: 5,000 units Documented By: Admin: 02/04/25 21:43 Dose: 5,000 units Documented By: Admin: 02/04/25 09:05 Dose: 5,000 units Documented By: Admin: 02/03/25 22:41 Dose: 5,000 units Documented By: JORGE Hydrochlorothiazide (Hydrochlorothiazide 25 Mg Tab) 12.5 mg PO QAM CRISTÓBAL Stop: 03/11/25 11:59 Last Admin: 02/10/25 08:07 Dose: 12.5 mg Documented By: Admin: 02/09/25 13:24 Dose: Not Given Documented By: Insulin Aspart (Insulin Aspart Per Unit Charge) 0 units SC ACHS CRISTÓBAL Stop: 03/05/25 20:59 Last Admin: 02/10/25 12:20 Dose: Not Given Documented By: Admin: 02/10/25 08:07 Dose: Not Given Documented By: Admin: 02/09/25 21:00 Dose: Not Given Documented By: Admin: 02/09/25 17:15 Dose: Not Given Documented By: Admin: 02/09/25 11:52 Dose: Not Given Documented By: Admin: 02/09/25 09:20 Dose: Not Given Documented By: Admin: 02/08/25 20:21 Dose: Not Given Documented By: Admin: 02/08/25 17:36 Dose: Not Given Documented By: Admin: 02/08/25 12:12 Dose: Not Given Documented By: Admin: 02/08/25 08:33 Dose: Not Given Documented By: Admin: 02/07/25 20:10 Dose: Not Given Documented By: CHRISTIAN Co-signed By: GEOVANNY Admin: 02/07/25 16:56 Dose: Not Given Documented By: Admin: 02/07/25 12:02 Dose: Not Given Documented By: N Admin: 02/07/25 07:37 Dose: Not Given Documented By: Admin: 02/06/25 20:35 Dose: Not Given Documented By: Admin: 02/06/25 17:14 Dose: Not Given Documented By: N Admin: 02/06/25 12:21 Dose: Not Given Documented By: Admin: 02/06/25 08:03 Dose: Not Given Documented By: Admin: 02/05/25 20:01 Dose: Not Given Documented By: Admin: 02/05/25 16:54 Dose: Not Given Documented By: Admin: 02/05/25 11:49 Dose: Not Given Documented By: Admin: 02/05/25 08:41 Dose: Not Given Documented By: Admin: 02/04/25 21:21 Dose: Not Given Documented By: Admin: 02/04/25 17:29 Dose: Not Given Documented By: Admin: 02/04/25 13:17 Dose: Not Given Documented By: Admin: 02/04/25 08:36 Dose: Not Given Documented By: Admin: 02/03/25 22:30 Dose: 1 units Documented By: JORGE Co-signed By: rmt Lidocaine (Lidocaine 5% 1 Patch) 1 patch [facility] [place] Stop: 03/06/25 15:44 Last Admin: 02/10/25 08:07 Dose: 1 patch Documented By: Admin: 02/09/25 09:22 Dose: 1 patch Documented By: Admin: 02/08/25 08:41 Dose: 1 patch Documented By: Admin: 02/07/25 09:04 Dose: 1 patch Documented By: Admin: 02/06/25 09:03 Dose: 1 patch Documented By: Admin: 02/05/25 09:29 Dose: 1 patch Documented By: Admin: 02/04/25 16:06 Dose: 1 patch Documented By: ADAM Losartan Potassium (Losartan Potassium 50 Mg Tab) 100 mg PO [facility] [place] Stop: 03/10/25 04:54 Last Admin: 02/10/25 08:07 Dose: 100 mg Documented By: Admin: 02/09/25 09:22 Dose: 100 mg Documented By: Admin: 02/08/25 05:26 Dose: 100 mg Documented By: CHRISTIAN Metoprolol Succinate (Metoprolol Succ 25mg Ext Rel Tab) 25 mg PO [facility] Stop: 03/05/25 20:59 Last Admin: 02/09/25 19:53 Dose: 25 mg Documented By: Admin: 02/08/25 20:03 Dose: 25 mg Documented By: Admin: 02/07/25 20:50 Dose: Not Given Documented By: Admin: 02/06/25 20:50 Dose: 25 mg Documented By: Admin: 02/05/25 20:20 Dose: 25 mg Documented By: Admin: 02/04/25 21:43 Dose: 25 mg Documented By: Admin: 02/03/25 22:40 Dose: 25 mg Documented By: JORGE Miscellaneous (Remove Lidoderm Patch) 1 each N/A DAILY@2100 PENDING SALE TO [facility] Stop: 03/06/25 20:59 Last Admin: 02/09/25 19:54 Dose: 1 each Documented By: Admin: 02/08/25 20:18 Dose: Not Given Documented By: Admin: 02/07/25 20:52 Dose: 1 each Documented By: Admin: 02/06/25 20:54 Dose: 1 each Documented By: Admin: 02/05/25 20:23 Dose: Not Given Documented By: Admin: 02/04/25 21:44 Dose: 1 each Documented By: JORGE Olanzapine (Olanzapine 10 Mg/2.1 Ml Sdv) 5 mg IM Q8H PRN PRN Reason: agitation Stop: 03/06/25 14:29 Last Admin: 02/04/25 15:26 Dose: 5 mg Documented By: AM Polyethylene Glycol (Polyethylene (Miralax) 17 Gm Pack) 17 gm PO DAILY PRN PRN Reason: Constipation Stop: 03/05/25 19:39 Last Admin: 02/09/25 19:53 Dose: 17 gm Documented By: [facility] Senna/Docusate Sodium (Docusate Sodium/Senna 50/8.6mg Tab) 1 tab PO DAILY CRISTÓBAL Stop: 03/06/25 08:59 Last Admin: 02/10/25 08:08 Dose: Not Given Documented By: Admin: 02/09/25 09:22 Dose: 1 tab Documented By: Admin: 02/08/25 08:42 Dose: 1 tab Documented By: Admin: 02/07/25 09:05 Dose: 1 tab Documented By: Admin: 02/06/25 09:01 Dose: 1 tab Documented By: Admin: 02/05/25 09:29 Dose: 1 tab Documented By: Admin: 02/04/25 09:05 Dose: 1 tab Documented By: ADAM Thiamine HCl (Thiamine Hcl 100 Mg Tab) 100 mg PO DAILY CRISTÓBAL Stop: 03/06/25 08:59 Last Admin: 02/10/25 08:07 Dose: 100 mg Documented By: Admin: 02/09/25 09:22 Dose: 100 mg Documented By: Admin: 02/08/25 08:42 Dose: 100 mg Documented By: Admin: 02/07/25 09:06 Dose: 100 mg Documented By: Admin: 02/06/25 09:02 Dose: 100 mg Documented By: Admin: 02/05/25 09:29 Dose: 100 mg Documented By: Admin: 02/04/25 08:35 Dose: 100 mg Documented By: ADAM Umeclidinium/Vilanterol (Umeclidinium/Vilanterol 62.5/25mcg 7 Puffs/Inhaler) 1 puffs INH DAILY CRISTÓBAL Stop: 03/06/25 08:59 Last Admin: 02/10/25 08:07 Dose: 1 puffs Documented By: Admin: 02/09/25 09:26 Dose: 1 puffs Documented By: Admin: 02/08/25 08:41 Dose: 1 puffs Documented By: Admin: 02/07/25 09:06 Dose: 1 puffs Documented By: Admin: 02/06/25 09:03 Dose: 1 puffs Documented By: Admin: 02/05/25 09:29 Dose: 1 puffs Documented By: Admin: 02/04/25 09:05 Dose: 1 puffs Documented By: ADAM Vitamin D (Cholecalciferol 25 Mcg (1000 Units) Tab) 25 mcg PO DAILY CRISTÓBAL Stop: 03/06/25 08:59 Last Admin: 02/10/25 08:07 Dose: 25 mcg Documented By: Admin: 02/09/25 09:22 Dose: 25 mcg Documented By: Admin: 02/08/25 08:42 Dose: 25 mcg Documented By: Admin: 02/07/25 09:05 Dose: 25 mcg Documented By: Admin: 02/06/25 09:02 Dose: 25 mcg Documented By: Admin: 02/05/25 09:28 Dose: 25 mcg Documented By: Admin: 02/04/25 08:35 Dose: 25 mcg Documented By: ADAM Discontinued Medications Amlodipine Besylate (Amlodipine Besylate 5 Mg Tab) 2.5 mg PO NOW ONE Stop: 02/07/25 20:51 Last Admin: 02/07/25 21:19 Dose: 2.5 mg Documented By: CHRISTIAN Gabapentin (Gabapentin 100 Mg Cap) 100 mg PO ONE ONE Stop: 02/04/25 17:16 Last Admin: 02/04/25 17:29 Dose: 100 mg Documented By: AM Gadobutrol (Gadobutrol 65ml Vial) 11.5 ml IV ONCE ONE Stop: 02/03/25 20:14 Last Admin: 02/03/25 20:14 Dose: 11.5 ml Documented By: SEE Hydralazine HCl (Hydralazine Hcl 20 Mg/Ml Vial) 10 mg IV Q6H PRN PRN Reason: hypertension Stop: 03/06/25 11:59 Last Admin: 02/08/25 23:57 Dose: 10 mg Documented By: Admin: 02/08/25 04:03 Dose: 10 mg Documented By: Admin: 02/06/25 03:55 Dose: 10 mg Documented By: ANASTACIO Sodium Chloride (Nss) 1,000 mls @ 999 mls/hr IV .Q1H1M ONE Stop: 02/03/25 14:49 Last Infusion: 02/03/25 18:19 Dose: Infused Documented By: Admin: 02/03/25 14:43 Dose: 999 mls/hr Documented By: CC Magnesium Sulfate/Dextrose (Magnesium Sulfate / D5w) 1 gm in 100 mls @ 50 mls/hr IV Q2H CRISTÓBAL Stop: 02/06/25 12:59 Last Infusion: 02/06/25 11:30 Dose: Infused Documented By: Admin: 02/06/25 09:17 Dose: 50 mls/hr Documented By: Infusion: 02/06/25 09:17 Dose: Infused Documented By: Admin: 02/06/25 09:17 Dose: 50 mls/hr Documented By: ANIA Magnesium Sulfate/Dextrose (Magnesium Sulfate / D5w) 1 gm in 100 mls @ 50 mls/hr IV Q2H CRISTÓBAL Stop: 02/07/25 17:44 Last Infusion: 02/07/25 16:35 Dose: Infused Documented By: Admin: 02/07/25 14:25 Dose: 50 mls/hr Documented By: Infusion: 02/07/25 14:25 Dose: Infused Documented By: Admin: 02/07/25 14:25 Dose: 50 mls/hr Documented By: NAIA Famotidine (Pepcid 20mg Iv Push) 20 mg in 5 mls @ 2.5 mls/min IV NOW ONE Stop: 02/08/25 05:46 Last Admin: 02/08/25 05:52 Dose: 2.5 mls/min Documented By: CHRISTIAN Ioversol (Optiray 320 125ml) 119 ml IV ONCE ONE Stop: 02/03/25 14:05 Last Admin: 02/03/25 14:05 Dose: 119 ml Documented By: LG Lactulose (Lactulose Syrup 20 Gm/30 Ml Udc) 20 gm PO NOW ONE Stop: 02/07/25 10:36 Last Admin: 02/07/25 12:31 Dose: Not Given Documented By: ANIA Losartan Potassium (Losartan Potassium 50 Mg Tab) 100 mg PO QAM CRISTÓBAL Stop: 03/06/25 08:59 Last Admin: 02/07/25 09:06 Dose: 100 mg Documented By: Admin: 02/06/25 09:02 Dose: 100 mg Documented By: Admin: 02/05/25 09:28 Dose: 100 mg Documented By: Admin: 02/04/25 08:34 Dose: 100 mg Documented By: AM Potassium Chloride (Potassium Chloride Crtab 20 Meq Tabcr) 40 meq PO NOW STA Stop: 02/04/25 08:27 Last Admin: 02/04/25 09:05 Dose: 40 meq Documented By: AM Potassium Chloride (Potassium Chloride Crtab 20 Meq Tabcr) 40 meq PO NOW STA Stop: 02/06/25 08:54 Last Admin: 02/06/25 09:16 Dose: 40 meq Documented By: ANIA Potassium Chloride (Potassium Chloride Crtab 20 Meq Tabcr) 40 meq PO NOW STA Stop: 02/07/25 13:37 Last Admin: 02/07/25 14:24 Dose: 40 meq Documented By: ANIA Description This is a 21 electrode EEG with a single channel dedicated to limited EKG. The electrodes were placed in accordance with the International 10-20 system. Report: At the onset of the EEG the patient was awake. The background is disorganized with loss of the normal anterior to posterior gradient. The background predominantly consists of generalized theta activity with some intermixed faster frequencies. No sleep transients were seen. Photic does not induce any abnormalities. Interpretation Impression: This is an abnormal awake and drowsy routine EEG due to generalized slowing suggestive of a nonspecific encephalopathy. No epileptiform activity seen.
--- NOTE | 2025-02-10 16:46 | Hospitalist Progress Note ---
Date of Service February 10, 2025 Assessment & Plan (1) URI (upper respiratory infection): (2) Staring episodes: Plan 75 year old male with PMH of HTN, HLD, DM II, CKD III, neuropathy, asthma, CRISELDA intolerant to CPAP, vitamin B12 deficiency, BPH, and others listed below presented to ER for possible seizure 02/03. H/O recurrent falls. Reported head injury 11/2024 and since with episodes of "staring and zoning out" and recurrent daily RAMIREZ's. 02/03 w/ an episode in front of healthcare provider. No bowel/bladder incontinence. Staring episodes: Likely side effects of meds Worsening gait balance: over last several months w/ intermittent confusion according to daughter At presentation, no significant electrolyte abnormality CT Head: No acute intracranial findings. CTA Head: There is no evidence of hemorrhage or mass effect noting angiographic phase technique. Unremarkable CT angiogram of the brain. CTA Neck:No significant arterial narrowing or occlusion seen in the neck. MRI brain w/ no acute finding. ?Seizure, possible syncopal episodes, possible med side effect Multiple staring episodes noted after starting pregabalin about 3 weeks [employer] per daughter Seizure precautions Staring episodes have resolved EEG noted generalzied slowing suggestive of nonspecific encephalopathy. No epileptiform activity seen Neurology evaluation noted concern for NPH and recommended NPH clinic eval and neurosurgical referral. Pregabalin has been discontinued. Currently on gabapentin he was previously on Recurrent falls: History recurrent falls past several months. Fall precautions. PT/OT eval Neuropathy: Previously trialed on gabapentin, amitriptyline which have since discontinued. [employer] pregabalin stopped Continue gabapentin Follow up with Neuro URI (upper respiratory infection): COVID 19 infection H/o asthma Nasal congestion, cough, myalgias x 1 week CXR: no acute infiltrate No leukocytosis, afebrile No wheezing on exam. COVID 19 +ve, pt had cough w/ scant clear sputum c/w albuterol prn, home tiotropium, mucinex. Acute Kidney Injury on CKD III Admitting Cr: 1.75. Cr was 1.3 on 10/26/24 Likely prerenal given acute illness/poor intake [employer]. s/p ivf, CR improved to 1.13 Monitor renal functions Avoid nephrotoxic agents Other chronic medical conditions: T2DM: Hold home metformin, sliding scale insulin while in hospital. A1c of 6.4 this admission. HTN/CAD/HLD: Continue with home losartan, metoprolol, atorvastatin. Since BP remains elevated add low dose HCTZ. Sleep apnea: Intolerant to CPAP per patient. BPH: Follows urology as an outpatient, Dtr reports pt is off of BPH meds. DVT prophylaxis: SQ heparin Full code Follows with [facility] for routine care. Awaiting placement at rehab Updated daughter at bedside I spent a total of 35 minutes coordinating, documenting and providing care for this patient excluding time spent in performance of separately billed services Admission and Anticipated Discharge Date Admission Date: February 03, 2025 Subjective Patient seen and examined No new complaints today Physical Exam Constitutional: + well hydrated; no acute distress Eyes: PERRL, conjunctivae normal, anicteric sclerae ENMT: external ear and nose normal, oropharynx normal Respiratory: normal respiratory effort, lungs clear to auscultation Cardiovascular: Rate/Rhythm: regular rate and regular rhythm Gastrointestinal (Abdomen): normal bowel sounds, soft, nontender, no hepatosplenomegaly Musculoskeletal: No pedal edema Neurologic: PERRL, EOMI, accommodation nl, no face palsy, no dysarthria Psychiatric: A+Ox3, euthymic affect Results & Data Results & Data Vital Signs (Past 12 Hours) Vital Signs Temp Pulse Pulse Resp BP Pulse Ox O2 Del Method 02/10/25 16:19 36.4 C L 76 20 91/53 L 96 Room Air 02/10/25 16:18 Room Air 02/10/25 12:23 36.9 C 65 18 107/55 L 96 Room Air 02/10/25 08:37 36.6 C 63 18 141/68 H 95 Room Air 02/10/25 08:05 64 02/10/25 07:48 Room Air Laboratory Results Abnormal lab results 02/09/25 02/09/25 02/10/25 Range/Units 16:41 20:52 06:11 Chloride 111 H (98-107) mmol/L Glucose 104 H (70-99(Fasting)) mg/dl POC Glucose 101 H 103 H (70-99) mg/dl 02/10/25 02/10/25 Range/Units 08:05 11:56 Chloride (98-107) mmol/L Glucose (70-99(Fasting)) mg/dl POC Glucose 123 H 105 H (70-99) mg/dl
[2025-02-11 06:34] LABS: Anion Gap 9.0 (3-11); Blood Urea Nitrogen 23.0 mg/dl (6-23); Calcium 9.3 mg/dl (8.6-10.3); Carbon Dioxide 21.0 mmol/L (21-32); Chloride 110.0 mmol/L (98-107); Creatinine Clr Calc Pharmacy 71.5 ml/min; Glucose 133.0 mg/dl (70-99(Fasting)); Potassium 3.8 mmol/L (3.5-5.1); Sodium 140.0 mmol/L (136-145)
[2025-02-11 08:01] VITALS: TEMP 97.9
--- NOTE | 2025-02-11 12:01 | Discharge Summary ---
Date of Service February 11, 2025 Admission HPI Per Admitting Provider Patient is 75 year old male with PMH HTN, HLD, DM II, CKD III, neuropathy, asthma, CRISELDA intolerant to CPAP, vitamin B12 deficiency, BPH, and others listed below presented to ER for possible seizure today. Patient reports recurrent falls and multiple times hit head in past several months. He states has been having balance issues and is falling. He states most of time he can catch himself using furniture in home but does fall to ground from standing position at least once a week. He also reports sometimes he finds himself on floor as if he has fallen but is unsure what happened. Per chart review was seen at [facility] ER on 11/27/2024 after a fall that occurred 2 weeks prior in which he reported striking his head and having daily headaches since. At that time CT head was without any acute intracranial abnormality and CT C-spine was without noted fracture. Patient states since that time seems to be having daily RAMIREZ's. Reports history head injury in and had recurrent RAMIREZ's after that but hasn't had RAMIREZ's for over 30 years until recently. He states progressive BLE weakness and paresthesias that daughter states has been worsened for months. Daughter states following with neurology at [place] and has MRI's ordered but not completed yet. Also reports started following with pain management And is awaiting MRI C-spine and consideration if injection would be beneficial. Patient reports bilateral shoulder discomfort after falls for past couple of months. He states has walker at home and wheelchair. Daughter states patient started pregabalin approximately 3 weeks ago and gabapentin and amitriptyline have been discontinued. Reports seems like since starting pregabalin she has noted patient with multiple episodes of what she describes as "staring off and zoning and out". She reports this occurs when they are having conversation and he appears to be looking off and stops talking and takes multiple prompts to restart conversation. She has not noted any tonic-clonic or shaking like motion. Patient reports some blurry vision but is unable to describe when this started. Daughter states home nurse was into visit patient today states patient was sitting in wheelchair when they were having conversation when he had episode of "staring off and was not responding". She reports he laid back in wheelchair. Daughter states she went off to call 911. She is unsure if there was any other reported seizure-like activity. Patient denies urinary or bowel incontinence, tongue biting. It is reported during EMS transport he had episode of staring and not talking. Patient states today he remembers home nurse coming and remembers talking to her. He reports next thing he remembers is being in an ambulance and having a headache and feeling nauseated. He is unsure if vomited today but denies vomiting during other episodes. Patient reports 1 week ago started with sore throat, nasal congestion, cough. Patient reports feels like cough is productive but does not bring anything up. Also reports for the past week with increased fatigue, generalized myalgias. Daughter states other family members with URI symptoms. Patient has taking OTC Tylenol sinus with limited relief. He states sometimes with SOB. Uses albuterol and spiriva intermittently as needed. Reports ongoing dysuria for months and has been following with urology. Patient also reports decreased appetite and decreased oral intake past couple of weeks. Reports last ETOH intake in 1981. Denies recreational drug use. Denies fever/chills, diaphoresis, dizziness, diplopia, neck pain, CP, orthopnea, palpitations, hemoptysis, choking, otalgia, abdominal pain, extremity edema, rashes, hematuria. Admission Exam Per Admitting Provider General: no distress, overweight elderly male, appears chronically ill Head: normocephalic, atraumatic Eyes: PERRL, EOM's intact, conjunctiva non-injected, anicteric ENT: +hard of hearing, normal inspection external ears, nose, mucous membranes dry, no pharynx erythema or edema, uvula midline Neck: supple, trachea midline, non-tender Lungs: clear, no respiratory distress, no wheezing/rhonchi/rales CV: RRR, no murmur, no pretibial edema Abd: normal BS, soft, non-tender Ext: no cyanosis, no calf tenderness Neuro: +hard of hearing so some things need repeated for pt to hear. Alert. oriented to person, place, month and year. No focal deficits noted, normal affect Skin: warm, dry Principal Diagnosis Staring episodes Ambulatory dysfunction Recurrent falls Possible NPH Upper respiratory infection/COVID 19 Acute kidney injury Discharge Exam Constitutional + well hydrated; no acute distress Eyes PERRL, conjunctivae normal, anicteric sclerae ENMT external ear and nose normal, oropharynx normal Respiratory normal respiratory effort, lungs clear to auscultation Cardiovascular Rate/Rhythm: regular rate and regular rhythm Gastrointestinal (Abdomen) normal bowel sounds, soft, nontender, no hepatosplenomegaly Neurologic PERRL, EOMI, accommodation nl, no face palsy, no dysarthria Psychiatric A+Ox3, euthymic affect Discharge Data Allergies Allergy/AdvReac Type Severity Reaction Status Date / Time bee venom protein (honey bee) Allergy Severe Swelling Verified 12/09/23 06:27 of Lip/Tongue/Throat procaine Allergy Severe ALLERGY TO Verified 12/09/23 06:27 LOCAL ANETHETICS, RXN UNKNOWN spironolactone Allergy Unknown Unknown Verified 12/09/23 06:27 [From Aldactone] lisinopril AdvReac Unknown Gastrointestinal Verified 12/09/23 06:27 Upset Consultations 02/03/25 15:22 ED Decision to Admit Stat 02/03/25 19:40 Consult Neurology Routine Ordered Studies 02/03/25 13:23 CT angio head w con Stat CT angio neck with con Stat CT head/brain wo con Stat 02/03/25 16:58 MRI Brain [MR brain wo/w con] Routine Hospital Course (1) URI (upper respiratory infection): (2) Staring episodes: Plan 75 year old male with PMH of HTN, HLD, DM II, CKD III, neuropathy, asthma, CRISELDA intolerant to CPAP, vitamin B12 deficiency, BPH, and others listed below presented to ER for possible seizure 02/03. H/O recurrent falls. Reported head injury 11/2024 and since with episodes of "staring and zoning out" and recurrent daily RAMIREZ's. 02/03 w/ an episode in front of healthcare provider. No bowel/bladder incontinence. Staring episodes: Likely side effects of meds Worsening gait balance: over last several months w/ intermittent confusion according to daughter At presentation, no significant electrolyte abnormality CT Head: No acute intracranial findings. CTA Head: There is no evidence of hemorrhage or mass effect noting angiographic phase technique. Unremarkable CT angiogram of the brain. CTA Neck:No significant arterial narrowing or occlusion seen in the neck. MRI brain w/ no acute finding. 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 No epileptiform activity seen Neurology evaluation noted concern for NPH and recommended NPH clinic eval and neurosurgical referral. Pregabalin has been discontinued. Currently on gabapentin he was previously on Recurrent falls: History recurrent falls past several months. Fall precautions. Neuropathy: Previously trialed on gabapentin, amitriptyline which have since discontinued. 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 COVID 19 +ve, pt had cough w/ scant clear sputum c/w albuterol prn, home tiotropium Acute Kidney Injury on CKD III Admitting Cr: 1.75. 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 s/p ivf, CR improved to 1.13 Avoid nephrotoxic agents Hypertension Continue losartan, metoprolol HCTZ added for better BP control Total Time Total Time Spent Total Time Spent (In Minutes): 45 Total Time Includes: Examination of the Patient, Discharge Planning, Medication Reconciliation and Other (Called daughter and updated her) Discharge Plan Discharge Items Patient Disposition: Transfer Inpatient Rehab Fac Reason For Visit: POSSIBLE SEIZURE Discharge Diagnosis: Staring episodes Ambulatory dysfunction Recurrent falls Possible NPH Upper respiratory infection/COVID 19 Acute kidney injury Condition on Discharge: Fair Activity: As commented below Activity Comment: Per PT/OT Non-emergency contact: Primary Care Provider and Neurologist Call non-emergency contact if: you have any medication questions and your symptoms worsen Follow-up/Referrals: Tamy Carrera, LYSSA [Primary Care Provider] - Diet: Carb Consistent or DM2 and Heart Healthy Addtl Attending Provider Instructions: Mr Baker You were hospitalized and managed for the above listed diagnoses. Your pregabalin was stopped and you were started on gabapentin. Another medication, Hydrochlorothiazide was also added to your regimen for better blood pressure control It is very important that you follow up with Neurology for further evaluation and management. You are being discharged to [facility] for rehab. It was a pleasure taking care of you Pending Studies at Discharge: No Stand-Alone Forms: My [facility] Skilled Items Patient informed of condition?: Yes DNR: No Discharge Level of Care: Acute rehab Communicable Disease: No Discharge Prognosis: Stable Lines: None Urinary Catheter: No Medications and DC Order Prescriptions: New hydrochlorothiazide 25 mg Tablet 12.5 mg PO QAM 30 Days Qty: 15 0RF gabapentin 100 mg Capsule 100 mg PO HS 30 Days Qty: 30 0RF Continued albuterol sulfate 90 mcg/actuation aerosol powdr breath activated 2 puffs INH Q6H PRN (Reason: Shortness Of Breath) atorvastatin 80 mg tablet 40 mg PO HS cetirizine 10 mg capsule 10 mg PO QAM cyanocobalamin (vitamin B-12) 500 mcg tablet 500 mcg PO QAM epinephrine 0.3 mg/0.3 mL auto-injector 0.3 mg IM UD PRN (Reason: bee stings) losartan 100 mg tablet 100 mg PO QAM metformin 500 mg tablet 500 mg PO BID meclizine 25 mg tablet 25 mg PO TID PRN (Reason: dizziness) Qty: 30 0RF sennosides-docusate sodium 8.6-50 mg Tablet 1 tab PO DAILY thiamine HCl (vitamin B1) 100 mg Tablet 100 mg PO DAILY aspirin 81 mg Tablet,Delayed Release (Dr/Ec) 81 mg PO DAILY metoprolol succinate 25 mg Tablet Extended Release 24 Hr 25 mg PO HS cholecalciferol (vitamin D3) [Vitamin D3] 25 mcg (1,000 unit) Tablet 25 mcg PO DAILY tiotropium bromide 2.5 mcg/actuation Mist 2 puff INHALATION DAILY Discontinued pregabalin 50 mg Capsule 50 mg PO BID Discharge Orders: Discharge Order (Routine); Ordered 02/11/25 Ordered By: Brianna Leon/Other Patient Handouts: Managing Type 2 Diabetes Admission Data Admit Date/Time: 02/03/25 16:24 Attending Provider: Brianna Bullock I. Admit Provider: Lionel Kang Primary Care Provider: Tamy Carrera Other Providers: Lionel Kang; Sharon Alcantar; [facility],Hospital; [place],[facility]; [facility]; Choco Anderson Other Interventions: Discharge Summary Assessment (RN) Last Done: 02/11/25 12:21
[2025-02-11 12:13] VITALS: BP 105/65; PULSE 77; RESP 18; O2SAT 97
== END 2025-02-11 13:24 | DRG 884 ==
LOC: ED 13:09 → SUATTDRO 16:24 → EDINP 16:24 → 4W 19:41